=== PATIENT | male | born 1940 | race Caucasian/White ===

== ENCOUNTER 2016-10-08 15:36 | Emergency (ER) | payer MEDICARE, OTHER ==
[~2016-10-08] VITALS: Ht 180.3 cm; Wt 77.0 kg
[~2016-10-08 15:36] MED LIST: ADVA250A INH; ALBUAER3 INH; BACL20TA PO; CARD180C5 PO; FOLI400T PO; HYDR25TA5 PO; IPRAAER INH; LORA-392 PO; OXYGENTANK NAS.CANULA; PRED10 PO; ROSU10 PO; VITA100021 SL; VITA100064 PO; WARF-23 PO
[2016-10-08 15:39] VITALS: BP 112/82; PULSE 109; RESP 20; TEMP 97.5; O2SAT 96
--- NOTE | 2016-10-08 15:55 | PD ---
HPI Chief Complaint: General Weakness Time Seen by Provider: 15:50 Travel History International Travel<30 days: No Contact w/Intl Traveler<30days: No Traveled to known affect area: No History of Present Illness HPI Patient presents via [facility] for general weakness and fatigue onset one day. Reports 2 falls today without head trauma. History of severe peripheral vascular disease with 50% blockage in his lower extremities. Patient is considering intervention with vascular. Reports abrasion to his right elbow. Long-term girlfriend proximal to 2 months ago and patient does live alone now. He does have a son in town and another son from [facility] who will be coming down to stay with him long-term. Unable to recall tetanus. States he was ambulating without assistance yesterday. Patient does have a cane and walker at home which he has not been using. History of atrial fibrillation on Coumadin and COPD using oxygen regularly. He is on Cardizem for rate control. PFSH Past Medical History Hx Anticoagulant Therapy: Yes Arthritis: No Asthma: No Autoimmune Disease: No Anxiety: No Depression: No Heart Rhythm Problems: Yes (afib) Cancer: No Cardiovascular Problems: Yes High Cholesterol: Yes Chest Pain: No Congestive Heart Failure: No COPD: Yes Cerebrovascular Accident: Yes (2013) Diabetes: No Diminished Hearing: No Endocrine: No Gastrointestinal Disorders: Yes GERD: No Genitourinary: No Headaches: No Hepatitis: No Hiatal Hernia: No Heparin Induced Thrombocytopen: No Hypertension: Yes Immune Disorder: No Implanted Vascular Access Dvce: No Kidney Stones: No Musculoskeletal: No Neurologic: No Psychiatric: No Reproductive: No Respiratory: Yes (asbestosis) Migraines: No Myocardial Infarction: No Radiation Therapy: No Renal Failure: No Seizures: No Sickle Cell Disease: No Sleep Apnea: No Thyroid Disease: No Ulcer: No Past Surgical History Abdominal Surgery: Yes AICD: No Appendectomy: Yes Body Medical Devices: PT. POOR HISTORIAN, DOES NOT REMEMBER WANT MEDS HE IS TAKING. Cardiac Surgery: No Cholecystectomy: No Ear Surgery: No Endocrine Surgery: No Eye Surgery: No Genitourinary Surgery: No Gynecologic Surgery: No (n/a) Insulin Pump: No Joint Replacement: No Neurologic Surgery: No Oral Surgery: No Pacemaker: No Thoracic Surgery: No Tonsillectomy: Yes Other Surgery: Yes Social History Alcohol Use: Yes (3 DRINKS PER DAY) Tobacco Use: Yes (1 PPD X 30 YEARS) Substance Use: No Allergies-Medications (Allergen,Severity, Reaction): Coded Allergies: No Known Allergies (Verified , 10/08/16) Reported Meds & Prescriptions Reported Meds & Active Scripts Active Cipro (Ciprofloxacin HCl) 500 Mg Tab 500 Mg PO BID Proair Hfa 8.5 GM Inh (Albuterol Sulfate) 90 Mcg/Act Aer 1 Puff INH Q2HR PRN 108 mcg/actuation Combivent Respimat Inh (Ipratropium-Albuterol Inh) 20-100 [place]/Act Aero 1 Puff INH QID Advair Diskus Inh (Fluticasone-Salmeterol Inh) 250-50 Mcg/Blist Aer 1 Puff INH BID Rinse mouth after use. Ativan (Lorazepam) 0.5 Mg Tab 1 Tab PO Q8HR Please follow up with primary care doctor within 7 days to advise on further tapering of this medication.. Hydrochlorothiazide 25 Mg Tab 25 Mg PO DAILY Cardizem CD 24 HR (Diltiazem CD 24 HR) 180 Mg Caper 360 Mg PO DAILY Oxygen tank (Oxygen) 1 Ea Tank 2 Liter [employer] CONTINUOUS Oxygen Concentrator Portable Gaseous 2 L/min via Nasal Cannula Continuous For 99 months Reported Warfarin 2.5 Mg Tab 2.5 Mg PO TU,THURS Warfarin 5 Mg Tab 5 Mg PO EXCEPT TU THUR Baclofen 20 Mg Tab 20 Mg PO TID Crestor (Rosuvastatin Calcium) 10 Mg Tab 10 Mg PO DAILY Folic Acid 400 Mcg Tab 400 Mcg PO DAILY Vitamin B-12 (Cyanocobalamin) 1,000 Mcg Subl 1,000 Mcg SL DAILY Vitamin D (Cholecalciferol) 1,000 Unit Tab 1,000 Units PO DAILY Physical Exam Narrative GENERAL: Well-nourished, well-developed patient. SKIN: Warm and dry. small skin tear right lateral elbow 2x2 cm HEAD: Normocephalic. EYES: No scleral icterus. No injection or drainage. NECK: Supple, trachea midline. No JVD or lymphadenopathy. CARDIOVASCULAR: Irregular rate and rhythm without murmurs, gallops, or rubs. RESPIRATORY: Breath sounds decreased. No accessory muscle use. GASTROINTESTINAL: Abdomen soft, non-tender, nondistended. MUSCULOSKELETAL: No cyanosis, or edema. BACK: Nontender without obvious deformity. No CVA tenderness. Data Data Last Documented VS Vital Signs Date Time Temp Pulse Resp B/P Pulse Ox O2 Delivery O2 Flow Rate FiO2 10/08/16 16:54 88 20 111/64 96 Nasal Cannula 2 10/08/16 15:39 97.5 Orders Tetanus/Diphtheria Tox Adult (Tetanus/Di (10/08/16 16:00) Wound Care (10/08/16 15:50) Complete Blood Count With Diff (10/08/16 15:50) Basic Metabolic Panel (Bmp) (10/08/16 15:50) Urinalysis - C+S If Indicated (10/08/16 15:50) Diltiazem Inj (Cardizem Inj) (10/08/16 16:45) Urine Culture (10/08/16 16:30) Electrocardiogram (10/08/16 15:41) Labs Laboratory Tests Test 10/08/16 10/08/16 16:10 16:30 White Blood Count 9.1 TH/MM3 Red Blood Count 4.62 MIL/MM3 Hemoglobin 15.1 GM/DL Hematocrit 45.2 % Mean Corpuscular Volume 97.8 FL Mean Corpuscular Hemoglobin 32.6 PG Mean Corpuscular Hemoglobin 33.3 % Concent Red Cell Distribution Width 14.3 % Platelet Count 168 TH/MM3 Mean Platelet Volume 8.4 FL Neutrophils (%) (Auto) 79.3 % Lymphocytes (%) (Auto) 11.0 % Monocytes (%) (Auto) 6.6 % Eosinophils (%) (Auto) 0.4 % Basophils (%) (Auto) 2.7 % Neutrophils # (Auto) 7.3 TH/MM3 Lymphocytes # (Auto) 1.0 TH/MM3 Monocytes # (Auto) 0.6 TH/MM3 Eosinophils # (Auto) 0.0 TH/MM3 Basophils # (Auto) 0.2 TH/MM3 CBC Comment AUTO DIFF Differential Comment AUTO DIFF CONFIRMED Sodium Level 127 MEQ/L Potassium Level 5.0 MEQ/L Chloride Level 89 MEQ/L Carbon Dioxide Level 24.2 MEQ/L Anion Gap 14 MEQ/L Blood Urea Nitrogen 16 MG/DL Creatinine 1.40 MG/DL Estimat Glomerular Filtration 50 ML/MIN Rate Random Glucose 83 MG/DL Calcium Level 8.8 MG/DL Urine Collection Type CLEAN CATCH Urine Color YELLOW Urine Turbidity MOD Urine pH 6.0 Urine Specific [place] 1.007 Urine Protein NEG mg/dL Urine Glucose (UA) NEG mg/dL Urine Ketones NEG mg/dL Urine Occult Blood SMALL Urine Nitrite NEG Urine Bilirubin NEG Urine Leukocyte Esterase LARGE Urine RBC 10-14 /hpf Urine WBC 100-200 /hpf Urine WBC Clumps MOD Urine Squamous Epithelial 0-5 /hpf Cells Urine Amorphous Sediment FEW Urine Bacteria MOD /hpf Microscopic Urinalysis Comment CULTURE INDICATED Urine Collection Time 1630 MDM Medical Decision Making Medical Screen Exam Complete: Yes Emergency Medical Condition: Yes Differential Diagnosis Fall risk, general weakness, peripheral vascular disease, uncontrolled atrial fibrillation Narrative Course Assessment and plan discussed with patient at bedside. Initial EKG reveals atrial fibrillation with a left bundle branch block rate of 111. Physician Communication Physician Communication Case discussed and care transferred to Dr. Cochran Scripts Ciprofloxacin (Cipro)500 Mg [id number] Mg PO BID #10 TAB Ref 0 Prov:Juan Cochran MD 10/08/16 Alfredo Colunga MD Oct 08, 2016 15:55
[2016-10-08] MEDS ORDERED: WARF-18 PO (15:57)
[2016-10-08] MEDS ORDERED: TETANUS/DIPHTHERIA TOXOID ADULT 0.5 ML VIAL IM ONE (16:00)
[2016-10-08 16:29] LABS: WHITE BLOOD COUNT 9.1 TH/MM3 (4.0-11.0)
[2016-10-08 16:30] LABS: AUTOMATED NEUTROPHIL # 7.3 TH/MM3 (1.8-7.7); BASOPHIL # 0.2 TH/MM3 (0-0.2); BASOPHIL % 2.7 % (0.0-2.0); EOSINOPHIL % 0.4 % (0.0-4.0); HEMATOCRIT 45.2 % (39.0-51.0); HEMO FLAGS AUTO DIFF; MEAN CELL VOLUME 97.8 FL (80.0-100.0); MEAN CORPUSCULAR HEMOGLOBIN 32.6 PG (27.0-34.0); MEAN CORPUSCULAR HGB CONC 33.3 % (32.0-36.0); MONO % 6.6 % (0.0-8.0); NEUT % 79.3 % (16.0-70.0); PLATELET COUNT 168 TH/MM3 (150-450); RED BLOOD COUNT 4.62 MIL/MM3 (4.50-5.90); RED CELL DISTRIBUTION WIDTH 14.3 % (11.6-17.2)
[2016-10-08 16:32] LABS: BICARBONATE 24.2 MEQ/L (21.0-32.0)
[2016-10-08] MEDS ORDERED: DILTIAZEM HCL 25 MG/5 ML VIAL IV ONE (16:45)
[2016-10-08 16:46] LABS: SCAN/DIFF AUTO DIFF CONFIRMED
[2016-10-08 16:54] VITALS: BP 111/64; PULSE 88; RESP 20; O2SAT 96
[2016-10-08 16:54] LABS: BLOOD, URINE SMALL (NEG); GLUCOSE,URINE NEG (NEG); KETONE, URINE NEG (NEG); NITRITE,URINE NEG (NEG)
[2016-10-08 16:55] LABS: METHOD OF COLLECTION CLEAN CATCH; URINE COLOR YELLOW (YELLW/STRAW)
[2016-10-08 17:09] LABS: BACTERIA, URINE MOD /hpf; COMMENT (UR) CULTURE INDICATED; CULTURE IF INDICATED CULTURE INDICATED; SQUAMOUS EPITHELIAL CELL URINE 0-5 /hpf (0-5); WBC, URINE 100-200 /hpf (0-5)
[2016-10-08] MEDS ORDERED: CIPR-9 PO (17:38)
--- NOTE | 2016-10-08 17:43 | PD ---
Data Data Last Documented VS Vital Signs Date Time Temp Pulse Resp B/P Pulse Ox O2 Delivery O2 Flow Rate FiO2 10/08/16 16:54 88 20 111/64 96 Nasal Cannula 2 10/08/16 15:39 97.5 Orders Tetanus/Diphtheria Tox Adult (Tetanus/Di (10/08/16 16:00) Wound Care (10/08/16 15:50) Complete Blood Count With Diff (10/08/16 15:50) Basic Metabolic Panel (Bmp) (10/08/16 15:50) Urinalysis - C+S If Indicated (10/08/16 15:50) Prothrombin Time / Inr (Pt) (10/08/16 16:41) Diltiazem Inj (Cardizem Inj) (10/08/16 16:45) Urine Culture (10/08/16 16:30) Labs Laboratory Tests Test 10/08/16 10/08/16 16:10 16:30 White Blood Count 9.1 TH/MM3 Red Blood Count 4.62 MIL/MM3 Hemoglobin 15.1 GM/DL Hematocrit 45.2 % Mean Corpuscular Volume 97.8 FL Mean Corpuscular Hemoglobin 32.6 PG Mean Corpuscular Hemoglobin 33.3 % Concent Red Cell Distribution Width 14.3 % Platelet Count 168 TH/MM3 Mean Platelet Volume 8.4 FL Neutrophils (%) (Auto) 79.3 % Lymphocytes (%) (Auto) 11.0 % Monocytes (%) (Auto) 6.6 % Eosinophils (%) (Auto) 0.4 % Basophils (%) (Auto) 2.7 % Neutrophils # (Auto) 7.3 TH/MM3 Lymphocytes # (Auto) 1.0 TH/MM3 Monocytes # (Auto) 0.6 TH/MM3 Eosinophils # (Auto) 0.0 TH/MM3 Basophils # (Auto) 0.2 TH/MM3 CBC Comment AUTO DIFF Differential Comment AUTO DIFF CONFIRMED Sodium Level 127 MEQ/L Potassium Level 5.0 MEQ/L Chloride Level 89 MEQ/L Carbon Dioxide Level 24.2 MEQ/L Anion Gap 14 MEQ/L Blood Urea Nitrogen 16 MG/DL Creatinine 1.40 MG/DL Estimat Glomerular Filtration 50 ML/MIN Rate Random Glucose 83 MG/DL Calcium Level 8.8 MG/DL Urine Collection Type CLEAN CATCH Urine Color YELLOW Urine Turbidity MOD Urine pH 6.0 Urine Specific [place] 1.007 Urine Protein NEG mg/dL Urine Glucose (UA) NEG mg/dL Urine Ketones NEG mg/dL Urine Occult Blood SMALL Urine Nitrite NEG Urine Bilirubin NEG Urine Leukocyte Esterase LARGE Urine RBC 10-14 /hpf Urine WBC 100-200 /hpf Urine WBC Clumps MOD Urine Squamous Epithelial 0-5 /hpf Cells Urine Amorphous Sediment FEW Urine Bacteria MOD /hpf Microscopic Urinalysis Comment CULTURE INDICATED Urine Collection Time 1630 MDM Supervised Visit with [facility]: No Narrative Course This case is checked out to me by Dr. Colunga at 4 PM. He complained of some generalized weakness and had a fall when he stumbled. He has chronic A. fib and his heart rate was running between 110 and 1:30 I gave him 10 mg IV Cardizem for rate control Is now running in the s CBC is normal Metabolic profile notable for hyponatremia of 127 and a creatinine of 1.4, slightly higher than previous 1.1 I'm recommending he hold his diuretic for a couple of days and contact his physician on Monday He seems a little bit over diuresed Urinalysis shows UTI and Cipro is prescribed Dr. Colunga did not find any reason to hospitalize him and the patient wants to go home. He has a walker at home and I recommended he use that continually to limit his fall risk. He also is a Coumadin use her and I discussed the risk of falling is higher with that medication. Diagnosis Primary Impression: Generalized weakness Additional Impressions: Acute cystitis Qualified Code: N30.00 - Acute cystitis without hematuria Hyponatremia Additional Instruction: The patient was advised to follow up with their physician and return if they worsen. Use walker Hold diuretic for 3 days Take antibiotics for UTI Med/Other Pt SpecificInfo: Prescription(s) given Scripts Ciprofloxacin (Cipro)500 Mg [id number] Mg PO BID #10 TAB Ref 0 Prov:Juan Cochran MD 10/08/16 Disposition: 01 DISCHARGE HOME Condition: Stable Juan Cochran MD Oct 08, 2016 17:43
--- NOTE | 2016-10-09 14:51 | EKG ---
Date Performed: 10/08/2016 Time Performed: 15:41:42 PTAGE: 75 years EKG: Atrial fibrillation with rapid ventricular response with PVC(s). Left bundle branch block U nderlying rhythm is atrial fibrillation. When compared to previous tracing, no significant change. Ab normal ECG PREVIOUS TRACING : 08/09/2016 13.43 DOCTOR: Margarette Guadalupe Interpretating Date/Time 10/09/2016 14:50:26
== END 2016-10-08 17:53 | disposition home or self-care (01) ==
LOC: PHED 15:36
DX: R53.1 Weakness (principal); N30.00 Acute cystitis without hematuria; E87.1 Hypo-osmolality and hyponatremia; I48.91 Unspecified atrial fibrillation; E78.00 Pure hypercholesterolemia, unspecified; I10 Essential (primary) hypertension; J44.9 Chronic obstructive pulmonary disease, unspecified; I44.7 Left bundle-branch block, unspecified; I49.3 Ventricular premature depolarization; I73.9 Peripheral vascular disease, unspecified; Z79.01 Long term (current) use of anticoagulants; Z99.81 Dependence on supplemental oxygen; F17.210 Nicotine dependence, cigarettes, uncomplicated
CPT/HCPCS: 80048; 81001; 85025; 87086; 90471; 90714; 93005; 96374

== ENCOUNTER 2017-08-06 10:31 | Emergency (ER) | payer OTHER ==
[~2017-08-06] VITALS: Ht 180.3 cm; Wt 73.0 kg
[2017-08-06 10:31] VITALS: BP 134/71; PULSE 100; RESP 20; TEMP 98.1; O2SAT 90
[~2017-08-06 10:31] MED LIST changes: +CIPR-9 PO; -PRED10 PO; +WARF-18 PO
[2017-08-06] MEDS ORDERED: FURO20TA PO (11:08)
[2017-08-06] MEDS ORDERED: SYMB80AE INH (11:08)
[2017-08-06] MEDS ORDERED: METO50TA PO (11:08)
[2017-08-06] MEDS ORDERED: PRAV40TA2 PO (11:08)
[2017-08-06] MEDS ORDERED: GUAI600T11 PO (11:08)
[2017-08-06] MEDS ORDERED: MAGN400T2 PO (11:08)
[2017-08-06] MEDS ORDERED: LOSA25TA PO (11:08)
[2017-08-06] MEDS ORDERED: FINA5TAB2 PO (11:08)
[2017-08-06] MEDS ORDERED: SPIRCAP INH (11:08)
[2017-08-06] MEDS ORDERED: BUSP15TA PO (11:08)
[2017-08-06] MEDS ORDERED: SPIR25TA PO (11:08)
[2017-08-06] MEDS ORDERED: ALFU10TA2 PO (11:08)
--- NOTE | 2017-08-06 11:13 | PD ---
HPI Chief Complaint: General Weakness Time Seen by Provider: 11:12 Travel History International Travel<30 days: No Contact w/Intl Traveler<30days: No Traveled to known affect area: No History of Present Illness HPI 76-year-old male came to the emergency room with history of weakness, shakiness , right upper extremity worse than the left upper extremity and bilateral lower extremity. Patient actually went to the urgent care this morning because of these complains and they transferred him in ambulance to the ER. Patient has these symptoms going on for past 2-3 days he says. However he does have slowly progressive weakness has been going on for months. He has history of COPD and atrial fibrillation. He used to smoke about 2 packs a day which he says he has cut down for past 1 month to half a pack a day and he has a nicotine patch. No history of syncopal episode or falls. Patient requires home oxygen as needed and for past 1 week he's been using it every day. He was in A. fib on the monitor but rest of the vital signs were within acceptable limits. Patient is awake and able to answer questions appropriately. No history of fever or chills. No history of fall. He is on Coumadin for his A. fib. He says that he was seen at the [facility] in [place] less than 1 week ago where his INR he was told was 2.5 and he had a nuclear stress test done which he was told that he had passed. [facility] Past Medical History Narrative Medical List of his past medical, surgical, social and family history is reviewed from the nursing note. Hx Anticoagulant Therapy: Yes Arthritis: No Asthma: No Atrial Fibrillation: Yes Autoimmune Disease: No Anxiety: Yes Depression: No Heart Rhythm Problems: Yes (afib) Cancer: No Cardiovascular Problems: Yes High Cholesterol: Yes Chest Pain: No Congestive Heart Failure: No COPD: Yes Cerebrovascular Accident: Yes Diabetes: No Diminished Hearing: Yes Endocrine: No Gastrointestinal Disorders: Yes GERD: No Genitourinary: No Headaches: No Hepatitis: No Hiatal Hernia: No Heparin Induced Thrombocytopen: No Hypertension: Yes Immune Disorder: No Implanted Vascular Access Dvce: No Kidney Stones: No Musculoskeletal: No Neurologic: No Psychiatric: No Reproductive: No Respiratory: Yes Immunizations Current: Yes Migraines: No Myocardial Infarction: No Radiation Therapy: No Renal Failure: No Seizures: No Sickle Cell Disease: No Sleep Apnea: No Thyroid Disease: No Ulcer: No Influenza Vaccination: No Past Surgical History Abdominal Surgery: Yes AICD: No Appendectomy: Yes Body Medical Devices: PT. MARKOS HISTORIAN, DOES NOT REMEMBER WANT MEDS HE IS TAKING. Cardiac Surgery: No Cholecystectomy: No Ear Surgery: No Endocrine Surgery: No Eye Surgery: No Genitourinary Surgery: No Insulin Pump: No Joint Replacement: No Neurologic Surgery: No Oral Surgery: No Pacemaker: No Thoracic Surgery: No Tonsillectomy: Yes Other Surgery: Yes Social History Alcohol Use: Yes (3-4DRINKS PER DAY) Tobacco Use: Yes (NICODERM PATCHES) Substance Use: No Allergies-Medications (Allergen,Severity, Reaction): Coded Allergies: gabapentin (Verified Allergy, Unknown, UNKNOWN, 08/06/17) lisinopril (Verified Adverse Reaction, Intermediate, GI UPSET, 08/06/17) Comments List of his allergies reviewed from the nursing note. Reported Meds & Prescriptions Reported Meds & Active Scripts Active Proair Hfa 8.5 GM Inh (Albuterol Sulfate) 90 Mcg/Act Aer 1 Puff INH Q2HR PRN 108 mcg/actuation Oxygen tank (Oxygen) 1 Ea Tank 2 Liter [email or web address] CONTINUOUS Oxygen Concentrator Portable Gaseous 2 L/min via Nasal Cannula Continuous For 99 months Reported Spiriva Handihaler (Tiotropium Inh) 18 Mcg Cap 18 Mcg INH DAILY 1 capsule = 18 mcg Spironolactone 25 Mg Tab 50 Mg PO DAILY Pravastatin 40 Mg Tab 40 Mg PO DAILY Metoprolol Tartrate 50 Mg Tab 50 Mg PO BID Magnesium Oxide 400 Mg Tab 400 Mg PO BID Losartan (Losartan Potassium) 25 Mg Tab 25 Mg PO DAILY Mucus Relief ER (Guaifenesin) 600 Mg Tab 400 Mg PO BID PRN Furosemide 20 Mg Tab 20 Mg PO BID Finasteride 5 Mg Tab 5 Mg PO DAILY Do not crush. Buspirone (Buspirone HCl) 15 Mg Tab 15 Mg PO TID Symbicort Inh (Budesonide/Formoterol Fumarate) 80-4.5 Mcg/Act Aero 2 Puff INH Q12HR Alfuzosin ER 24 HR 10 Mg Tab 10 Mg PO DAILY Warfarin 2.5 Mg Tab 2.5 Mg PO - Warfarin 5 Mg Tab 5 Mg PO MON,,,MON Baclofen 20 Mg Tab 20 Mg PO TID Folic Acid 400 Mcg Tab 400 Mcg PO DAILY Vitamin D3 (Cholecalciferol) 1,000 Unit Tab 1,000 Units PO DAILY Narrative Medication List of his home medications reviewed from the nursing note. Review of Systems Except as stated in HPI: all other systems reviewed are Neg Neurologic: Positive: Weakness Physical Exam Narrative GENERAL: Awake, elderly, frail, moderate distress SKIN: Focused skin assessment warm/dry. HEAD: Atraumatic. Normocephalic. EYES: Pupils equal and round. No scleral icterus. No injection or drainage. ENT: No nasal bleeding or discharge. Mucous membranes pink and moist. NECK: Trachea midline. No JVD. CARDIOVASCULAR: Regular rate and rhythm. No murmur appreciated. RESPIRATORY: No accessory muscle use. Clear to auscultation. Breath sounds equal bilaterally. GASTROINTESTINAL: Abdomen soft, non-tender, nondistended. Hepatic and splenic margins not palpable. MUSCULOSKELETAL: No obvious deformities. No clubbing. No cyanosis. No edema. NEUROLOGICAL: Awake and alert. No obvious cranial nerve deficits. Motor grossly within normal limits. Normal speech. Resting tremors of all 4 extremities PSYCHIATRIC: Appropriate mood and affect; insight and judgment normal. Data Data Last Documented VS Vital Signs Date Time Temp Pulse Resp B/P (MAP) Pulse Ox O2 Delivery O2 Flow Rate FiO2 08/06/17 12:21 96 Nasal Cannula 2.00 08/06/17 11:45 96 18 08/06/17 10:31 98.1 Orders Orders Electrocardiogram (08/06/17 11:57) Prothrombin Time / Inr (Pt) (08/06/17 11:57) Complete Blood Count With Diff (08/06/17 11:57) Basic Metabolic Panel (Bmp) (08/06/17 11:57) Troponin I (08/06/17 11:57) Urinalysis - C+S If Indicated (08/06/17 11:57) Ct Brain W/O Iv Contrast(Rout) (08/06/17 11:57) Chest, Single Ap (08/06/17 11:57) Ecg Monitoring (08/06/17 11:57) Iv Access Insert/Monitor (08/06/17 11:57) Oximetry (08/06/17 11:57) Sodium Chloride 0.9% Flush (Ns Flush) (08/06/17 12:00) Labs Laboratory Tests Test 08/06/17 12:04 White Blood Count 5.9 TH/MM3 Red Blood Count 3.44 MIL/MM3 Hemoglobin 12.1 GM/DL Hematocrit 35.9 % Mean Corpuscular Volume 104.2 FL Mean Corpuscular Hemoglobin 35.3 PG Mean Corpuscular Hemoglobin Concent 33.8 % Red Cell Distribution Width 13.6 % Platelet Count 114 TH/MM3 Mean Platelet Volume 7.8 FL Neutrophils (%) (Auto) 76.8 % Lymphocytes (%) (Auto) 12.4 % Monocytes (%) (Auto) 9.9 % Eosinophils (%) (Auto) 0.2 % Basophils (%) (Auto) 0.7 % Neutrophils # (Auto) 4.6 TH/MM3 Lymphocytes # (Auto) 0.7 TH/MM3 Monocytes # (Auto) 0.6 TH/MM3 Eosinophils # (Auto) 0.0 TH/MM3 Basophils # (Auto) 0.0 TH/MM3 CBC Comment DIFF FINAL Differential Comment Prothrombin Time 23.4 SEC Prothromb Time International Ratio 2.1 RATIO Blood Urea Nitrogen 15 MG/DL Creatinine 1.00 MG/DL Random Glucose 126 MG/DL Calcium Level 8.6 MG/DL Sodium Level 134 MEQ/L Potassium Level 4.0 MEQ/L Chloride Level 97 MEQ/L Carbon Dioxide Level 28.8 MEQ/L Anion Gap 8 MEQ/L Estimat Glomerular Filtration Rate 73 ML/MIN Troponin I LESS THAN 0.02 NG/ML MDM Medical Decision Making Medical Screen Exam Complete: Yes Emergency Medical Condition: Yes Medical Record Reviewed: Yes Interpretation(s) Twelve-lead EKG was reviewed by me. Atrial fibrillation, normal axis, old anterior DC. Heart rate of 98 bpm. Differential Diagnosis CVA, Parkinson's, generalized weakness, electrolyte abnormality Narrative Course 1 PM blood test results of back and within acceptable limits. CT scan of the head is negative for any CVA. X-ray of the chest shows old scarring and COPD. At this point I'm thinking of discharging the patient and setting up a home health care for him. Procedures EKG Prior to Arrival: No Diagnosis Primary Impression: Generalized weakness Additional Impression: Essential tremor Referrals: Primary Care Physician 2 days Additional Instructions: Please return to the ER if the condition worsens or any other new concerns. Otherwise follow-up with your primary care. You will have home health care coming and evaluating you. Med/Other Pt SpecificInfo: No Meds Exist/No RX given Disposition: 01 DISCHARGE HOME Condition: Stable Emilia Asher MD Aug 06, 2017 11:13
[2017-08-06 11:33] VITALS: BP 140/78; PULSE 105; RESP 18; O2SAT 97
[2017-08-06 11:45] VITALS: BP 128/72; PULSE 96; RESP 18; O2SAT 96
[2017-08-06] MEDS ORDERED: SODIUM CHLORIDE 0.9% FLUSH 10 ML FLUSH IVF PRN (12:00)
[2017-08-06 12:10] LABS: AUTOMATED NEUTROPHIL # 4.6 TH/MM3 (1.8-7.7); BASOPHIL % 0.7 % (0.0-2.0); EOSINOPHIL % 0.2 % (0.0-4.0); HEMATOCRIT 35.9 % (39.0-51.0); HEMO FLAGS DIFF FINAL; LYMPH % 12.4 % (9.0-44.0); LYMPHOCYTE # 0.7 TH/MM3 (1.0-4.8); MEAN CELL VOLUME 104.2 FL (80.0-100.0); MEAN CORPUSCULAR HEMOGLOBIN 35.3 PG (27.0-34.0); MEAN CORPUSCULAR HGB CONC 33.8 % (32.0-36.0); MONO % 9.9 % (0.0-8.0); NEUT % 76.8 % (16.0-70.0); PLATELET COUNT 114 TH/MM3 (150-450); RED BLOOD COUNT 3.44 MIL/MM3 (4.50-5.90); RED CELL DISTRIBUTION WIDTH 13.6 % (11.6-17.2); WHITE BLOOD COUNT 5.9 TH/MM3 (4.0-11.0)
[2017-08-06 12:18] LABS: CHLORIDE 97 MEQ/L (98-107); SODIUM (NA) 134 MEQ/L (136-145)
--- NOTE | 2017-08-06 12:20 | RADRPT ---
EXAM DATE/TIME: 08/06/2017 12:07 [facility] COMPARISON: No previous studies available for comparison. INDICATIONS : Generalized weakness. RADIATION DOSE: 57.80 CTDIvol (mGy) MEDICAL HISTORY : Cerebrovascular disease. Hypertension. Chronic obstructive pulmonary disease. SURGICAL HISTORY : Tonsillectomy. ENCOUNTER: Initial ACUITY: 1 week PAIN SCALE: 0/10 LOCATION: cranial TECHNIQUE: Multiple contiguous axial images were obtained of the head. Using automated exposure control and adj ustment of the mA and/or kV according to patient size, radiation dose was kept as low as reasonably a chievable to obtain optimal diagnostic quality images. DICOM format image data is available electro nically for review and comparison. FINDINGS: CEREBRUM: The ventricles are normal for age. No evidence of midline shift, mass lesion, hemorrhage or acute in farction. No extra-axial fluid collections are seen. POSTERIOR FOSSA: The cerebellum and brainstem are intact. The 4th ventricle is midline. The cerebellopontine angle i s unremarkable. EXTRACRANIAL: The visualized portion of the orbits is intact. SKULL: The calvaria is intact. No evidence of skull fracture. CONCLUSION: No acute intracranial disease. Hugo Worthy MD on August 06, 2017 at 12:16 Board Certified Radiologist. This report was verified electronically.
[2017-08-06 12:21] VITALS: O2SAT 96
[2017-08-06 12:21] LABS: INTERNATIONAL NORMALIZED RATIO 2.1 RATIO; PROTHROMBIN TIME - PATIENT 23.4 SEC (9.8-11.6)
[2017-08-06 12:22] LABS: ANION GAP 8 MEQ/L (5-15); BICARBONATE 28.8 MEQ/L (21.0-32.0); BLOOD UREA NITROGEN 15 MG/DL (7-18)
[2017-08-06 12:25] LABS: GLOMERULAR FILTRATION RATE 73 ML/MIN (>89)
--- NOTE | 2017-08-06 12:44 | RADRPT ---
EXAM DATE/TIME: 08/06/2017 12:19 [facility] COMPARISON: CHEST SINGLE AP, August 09, 2016, 13:17. INDICATIONS : Generalized weakness, CVA MEDICAL HISTORY : Chronic obstructive pulmonary disease. Hypertension Cerebrovascular disease. SURGICAL HISTORY : Tonsillectomy. ENCOUNTER: Subsequent ACUITY: 1 week PAIN SCORE: 0/10 LOCATION: Bilateral chest FINDINGS: A single view of the chest demonstrates moderate right pleural effusion and right basilar density. Mi nimal density left lung base. Calcified pleural plaques. Osseous structures are intact. CONCLUSION: 1. Right basilar pleural-parenchymal density, stable. 2. Calcified pleural plaques which can be seen with asbestosis exposure. Hugo Worthy MD on August 06, 2017 at 12:32 Board Certified Radiologist. This report was verified electronically.
--- NOTE | 2017-08-06 13:07 | HHI.FF ---
Face to Face Verification Diagnosis: (1) Generalized weakness (2) Essential tremor Physical Therapy Order: Evaluate and Treat, Improve ambulation, Strength and gait training Occupational Therapy Order: Evaluate and Treat, Improve ADL, Gross motor coordination, Fine motor coordination Home Health Nursing Order: CHF education Head Esthetician Order: To Evaluate: Support services I have seen patient Virgilio Cepsedes on 08/06/17. My clinical findings support the need for the requested home health care services because: Generalized weakness and tremors that's giving him hard time ambulating and lifting objects. Ltd mobility - disease progression Patient has SOB Deconditioned w/ increased weakness I certify that my clinical findings support that this patient is homebound because: Unsteady gait/balance Generalized weakness and tremors that's giving him hard time ambulating and lifting objects. Emilia Asher MD Aug 06, 2017 13:07
[2017-08-06 13:30] VITALS: BP 146/80; PULSE 100; RESP 18; O2SAT 96
--- NOTE | 2017-08-07 18:33 | EKG ---
Date Performed: 08/06/2017 Time Performed: 12:05:23 PTAGE: 76 years EKG: ATRIAL FIBRILLATION SEPTAL MYOCARDIAL INFARCTION ABNORMAL ECG Compared to PREVIOUS TRACING , heart rate has slowed somewhat. PREVIOUS TRACIN10/08/2016 15.41 DOCTOR: Margarette Guadalupe Interpretating Date/Time 08/07/2017 18:32:12
== END 2017-08-06 13:49 | disposition home or self-care (01) ==
LOC: PHED 10:31
DX: R53.1 Weakness (principal); G25.0 Essential tremor; I48.91 Unspecified atrial fibrillation; J44.9 Chronic obstructive pulmonary disease, unspecified; Z79.01 Long term (current) use of anticoagulants; I10 Essential (primary) hypertension; Z72.0 Tobacco use
CPT/HCPCS: 70450; 71010; 80048; 84484; 85025; 85610; 93005; 99285

== ENCOUNTER 2017-09-26 11:53 | Inpatient (IN) | payer OTHER, MEDICARE ==
[2017-09-26] VITALS (9 sets, daily range): BP systolic 127–160; BP diastolic 63–94; PULSE 92–112; RESP 18–24; TEMP 98.2; O2SAT 94–97
[~2017-09-26 11:53] MED LIST changes: -ADVA250A INH; +ALFU10TA2 PO; +BUSP15TA PO; -CARD180C5 PO; -CIPR-9 PO; +FINA5TAB2 PO; +FURO20TA PO; +GUAI600T11 PO; -HYDR25TA5 PO; -IPRAAER INH; -LORA-392 PO; +LOSA25TA PO; +MAGN400T2 PO; +METO50TA PO; +PRAV40TA2 PO; -ROSU10 PO; +SPIR25TA PO; +SPIRCAP INH; +SYMB80AE INH; -VITA100021 SL
[2017-09-26] MEDS ORDERED: BACL10TA PO (12:16)
[2017-09-26] MEDS ORDERED: NITR1SUB2 SL (12:16)
[2017-09-26] MEDS ORDERED: FLUT1SPR14 (12:16)
[2017-09-26] MEDS ORDERED: TRAZ50TA12 PO (12:16)
[2017-09-26] MEDS ORDERED: RESP: ALBUTEROL 2.5 MG/IPRATROPIUM 0.5 MG NEB (SCH) INH ONE (12:30)
--- NOTE | 2017-09-26 12:36 | PD ---
HPI Chief Complaint: Respiratory Symptoms Time Seen by Provider: 12:00 Travel History International Travel<30 days: No Contact w/Intl Traveler<30days: No Traveled to known affect area: No History of Present Illness HPI 76-year-old male with a history of congestive heart failure, COPD and atrial fibrillation presents [facility] for [facility] of breath and urinary symptoms. States that for the last week he has had a and increased difficulty with breathing and has had a productive cough with yellow phlegm. Patient denies fevers or chills. Denies nausea, vomiting or diarrhea. States he does have orthopnea but this is an chronic the last year. In addition, the patient is complaining of dark, cloudy, and malodorous urine for the last week. Patient denies abdominal pain or dysuria. Denies hematuria. 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 States that he is followed up with them within the last 3 months. States he is noncompliant with his medications. Says he "occasionally" uses oxygen at home but only at night. PFSH Past Medical History Hx Anticoagulant Therapy: Yes Arthritis: No Asthma: No Atrial Fibrillation: Yes Autoimmune Disease: No Anxiety: Yes Depression: No Heart Rhythm Problems: Yes (afib) Cancer: No Cardiovascular Problems: Yes High Cholesterol: Yes Chest Pain: No Congestive Heart Failure: No COPD: Yes Cerebrovascular Accident: Yes Diabetes: No Diminished Hearing: Yes Endocrine: No Gastrointestinal Disorders: Yes GERD: No Genitourinary: No Headaches: No Hepatitis: No Hiatal Hernia: No Heparin Induced Thrombocytopen: No Hypertension: Yes Immune Disorder: No Implanted Vascular Access Dvce: No Kidney Stones: No Musculoskeletal: No Neurologic: No Psychiatric: No Reproductive: No Respiratory: Yes Immunizations Current: Yes Migraines: No Myocardial Infarction: No Radiation Therapy: No Renal Failure: No Seizures: No Sickle Cell Disease: No Sleep Apnea: No Thyroid Disease: No Ulcer: No Influenza Vaccination: No ?: Not Past Surgical History Abdominal Surgery: Yes AICD: No Appendectomy: Yes Body Medical Devices: PT. POOR HISTORIAN, DOES NOT REMEMBER WANT MEDS HE IS TAKING. Cardiac Surgery: No Cholecystectomy: No Ear Surgery: No Endocrine Surgery: No Eye Surgery: No Genitourinary Surgery: No Insulin Pump: No Joint Replacement: No Neurologic Surgery: No Oral Surgery: No Pacemaker: No Thoracic Surgery: No Tonsillectomy: Yes Other Surgery: Yes Social History Alcohol Use: Yes (3-4DRINKS PER DAY) Tobacco Use: Yes (NICODERM PATCHES) Substance Use: No Allergies-Medications (Allergen,Severity, Reaction): Coded Allergies: gabapentin (Verified Allergy, Unknown, UNKNOWN, 09/26/17) lisinopril (Verified Adverse Reaction, Intermediate, GI UPSET, 09/26/17) Reported Meds & Prescriptions Reported Meds & Active Scripts Active Proair Hfa 8.5 GM Inh (Albuterol Sulfate) 90 Mcg/Act Aer 1 Puff INH Q2HR PRN 108 mcg/actuation Oxygen tank (Oxygen) 1 Ea Tank 2 Liter KEYSHAWN.CANULA CONTINUOUS Oxygen Concentrator Portable Gaseous 2 L/min via Nasal Cannula Continuous For 99 months Reported Nitroglycerin SL (Nitroglycerin) 0.3 Mg Subl 0.3 Mg SL DIRECTED PRN ONE TABLET UNDER THE TONGUE NEEDED FOR CHEST PAIN, MAY REPEAT EVERY FIVE MINUTES FOR A TOTAL OF 3 DOSES OR CALL 911 IF NO RELIEF Trazodone (Trazodone HCl) 50 Mg Tab 50 Mg PO HS Kls Aller-Bebo (Fluticasone Propionate (Nasal)) 50 Mcg/Actuation Spr Baclofen 10 Mg Tab 10 Mg PO TID Spiriva Handihaler (Tiotropium Inh) 18 Mcg Cap 18 Mcg INH DAILY 1 capsule = 18 mcg Spironolactone 25 Mg Tab 50 Mg PO DAILY Pravastatin 40 Mg Tab 40 Mg PO DAILY Metoprolol Tartrate 50 Mg Tab 50 Mg PO BID Magnesium Oxide 400 Mg Tab 400 Mg PO BID Losartan (Losartan Potassium) 25 Mg Tab 25 Mg PO DAILY Mucus Relief ER (Guaifenesin) 600 Mg Tab 400 Mg PO BID PRN Furosemide 20 Mg Tab 20 Mg PO BID Finasteride 5 Mg Tab 5 Mg PO DAILY Do not crush. Buspirone (Buspirone HCl) 15 Mg Tab 15 Mg PO TID Symbicort Inh (Budesonide/Formoterol Fumarate) 80-4.5 Mcg/Act Aero 2 Puff INH Q12HR Alfuzosin ER 24 HR 10 Mg Tab 10 Mg PO DAILY Warfarin 2.5 Mg Tab 2.5 Mg PO -- Warfarin 5 Mg Tab 5 Mg PO MON,,,MON Folic Acid 400 Mcg Tab 400 Mcg PO DAILY Vitamin D3 (Cholecalciferol) 1,000 Unit Tab 1,000 Units PO DAILY Review of Systems Except as stated in HPI: all other systems reviewed are Neg Physical Exam Narrative GENERAL: Well-nourished and distress SKIN: Focused skin assessment warm/dry. HEAD: Atraumatic. Normocephalic. EYES: Pupils equal and round. No scleral icterus. No injection or drainage. ENT: No nasal bleeding or discharge. Mucous membranes pink and moist. NECK: Trachea midline. No JVD. CARDIOVASCULAR: Regular rate and rhythm. No murmur appreciated. RESPIRATORY: No accessory muscle use. Wheezes, rales, and rhonchi upper lobes GASTROINTESTINAL: Abdomen soft, non-tender, nondistended. Hepatic and splenic margins not palpable. MUSCULOSKELETAL: No obvious deformities. No clubbing. No cyanosis. No edema. NEUROLOGICAL: Awake and alert. No obvious cranial nerve deficits. Motor grossly within normal limits. Normal speech. PSYCHIATRIC: Appropriate mood and affect; insight and judgment normal. Data Data Last Documented VS Vital Signs Date Time Temp Pulse Resp B/P (MAP) Pulse Ox O2 Delivery O2 Flow Rate FiO2 09/26/17 12:44 98.2 112 22 139/76 (97) 95 Nasal Cannula 3.50 Orders Orders Complete Blood Count With Diff (09/26/17 12:18) Comprehensive Metabolic Panel (09/26/17 12:18) B-Type Natriuretic Peptide (09/26/17 12:18) Act Partial Throm Time (Ptt) (09/26/17 12:18) Prothrombin Time / Inr (Pt) (09/26/17 12:18) Magnesium (Mg) (09/26/17 12:18) Ckmb (Isoenzyme) Profile (09/26/17 12:18) Troponin I (09/26/17 12:18) Urinalysis - C+S If Indicated (09/26/17 12:18) Influenzae A/B Antigen (09/26/17 12:18) Blood Culture (09/26/17 12:18) Electrocardiogram (09/26/17 12:18) Chest, Pa & Lat (09/26/17 12:18) Albuterol-Ipratropium Neb (Duoneb Neb) (09/26/17 12:30) Methylprednisolone So Succ Inj (Solumedr (09/26/17 12:45) Urine Culture (09/26/17 12:30) Ceftriaxone Inj (Rocephin Inj) (09/26/17 13:30) Azithromycin (Zithromax) (09/26/17 13:30) Furosemide Inj (Lasix Inj) (09/26/17 13:45) Admit Order (Ed Use Only) (09/26/17 13:51) Labs Laboratory Tests Test 09/26/17 12:15 09/26/17 12:30 White Blood Count 4.7 TH/MM3 Red Blood Count 3.66 MIL/MM3 Hemoglobin 12.7 GM/DL Hematocrit 37.7 % Mean Corpuscular Volume 103.0 FL Mean Corpuscular Hemoglobin 34.7 PG Mean Corpuscular Hemoglobin Concent 33.7 % Red Cell Distribution Width 14.4 % Platelet Count 137 TH/MM3 Mean Platelet Volume 8.9 FL Neutrophils (%) (Auto) 63.6 % Lymphocytes (%) (Auto) 20.7 % Monocytes (%) (Auto) 13.5 % Eosinophils (%) (Auto) 1.3 % Basophils (%) (Auto) 0.9 % Neutrophils # (Auto) 3.0 TH/MM3 Lymphocytes # (Auto) 1.0 TH/MM3 Monocytes # (Auto) 0.6 TH/MM3 Eosinophils # (Auto) 0.1 TH/MM3 Basophils # (Auto) 0.0 TH/MM3 CBC Comment DIFF FINAL Differential Comment Prothrombin Time 26.6 SEC Prothromb Time International Ratio 2.6 RATIO Activated Partial Thromboplast Time 37.8 SEC Blood Urea Nitrogen 14 MG/DL Creatinine 1.19 MG/DL Random Glucose 94 MG/DL Total Protein 7.6 GM/DL Albumin 3.1 GM/DL Calcium Level 9.2 MG/DL Magnesium Level 1.9 MG/DL Alkaline Phosphatase 88 U/L Aspartate Amino Transf (AST/SGOT) 18 U/L Alanine Aminotransferase (ALT/SGPT) 15 U/L Total Bilirubin 1.1 MG/DL Sodium Level 136 MEQ/L Potassium Level 3.9 MEQ/L Chloride Level 97 MEQ/L Carbon Dioxide Level 32.2 MEQ/L Anion Gap 7 MEQ/L Estimat Glomerular Filtration Rate 60 ML/MIN Total Creatine Kinase 44 U/L Troponin I 0.02 NG/ML B-Type Natriuretic Peptide 1665 PG/ML Ethyl Alcohol Level LESS THAN 3 MG/DL Urine Color YELLOW Urine Turbidity CLOUDY Urine pH 6.5 Urine Specific [place] 1.010 Urine Protein 100 mg/dL Urine Glucose (UA) NEG mg/dL Urine Ketones NEG mg/dL Urine Occult Blood MOD Urine Nitrite NEG Urine Bilirubin NEG Urine Urobilinogen LESS THAN 2.0 MG/DL Urine Leukocyte Esterase LARGE Urine RBC 20 /hpf Urine WBC /hpf Urine WBC Clumps MANY Microscopic Urinalysis Comment CULTURE INDICATED MDM Medical Decision Making Medical Screen Exam Complete: Yes Emergency Medical Condition: Yes Differential Diagnosis Pneumonia, congestive heart failure, COPD exacerbation, congestive heart failure , STEMI, NSTEMI Narrative Course 76-year-old male with a history of congestive heart failure, COPD and atrial fibrillation presents [facility] the ED [facility] for [facility]ness of breath and urinary symptoms. States that for the last week he has had a and increased difficulty with breathing and has had a productive cough with yellow phlegm. Patient denies fevers or chills. Denies nausea, vomiting or diarrhea. States he does have orthopnea but this is an chronic the last year. In addition, the patient is complaining of dark, cloudy, and malodorous urine for the last week. Patient denies abdominal pain or dysuria. Denies hematuria. 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 States that he is followed up with them within the last 3 months. States he is noncompliant with his medications. Says he "occasionally" uses oxygen at home but only at night. Vital signs demonstrates heart rate 93 to 130. Afebrile. 89% O2 saturation on room air, 92% with 2 L a minute nasal cannula. EKG demonstrates atrial fibrillation with rate controlled. Physical exam demonstrates wheezes, rales, rhonchi in the upper lobes with diminished breath sounds bilateral lower lobes. Patient will be administered Solu-Medrol 125 mg as this is also likely a COPD exacerbation. DuoNeb 1 administered. Administered cautiously as his heart rate was persistent at 120 bpm. After further discussion patient states that he has not taken any his medications today. States that he takes Coumadin and a couple of other medications in the morning along with another dose at night. He is unable to to tell me what these medications are. Laboratory Tests Test 09/26/17 12:15 09/26/17 12:30 White Blood Count 4.7 TH/MM3 Red Blood Count 3.66 MIL/MM3 Hemoglobin 12.7 GM/DL Hematocrit 37.7 % Mean Corpuscular Volume 103.0 FL Mean Corpuscular Hemoglobin 34.7 PG Mean Corpuscular Hemoglobin Concent 33.7 % Red Cell Distribution Width 14.4 % Platelet Count 137 TH/MM3 Mean Platelet Volume 8.9 FL Neutrophils (%) (Auto) 63.6 % Lymphocytes (%) (Auto) 20.7 % Monocytes (%) (Auto) 13.5 % Eosinophils (%) (Auto) 1.3 % Basophils (%) (Auto) 0.9 % Neutrophils # (Auto) 3.0 TH/MM3 Lymphocytes # (Auto) 1.0 TH/MM3 Monocytes # (Auto) 0.6 TH/MM3 Eosinophils # (Auto) 0.1 TH/MM3 Basophils # (Auto) 0.0 TH/MM3 CBC Comment DIFF FINAL Differential Comment Prothrombin Time 26.6 SEC Prothromb Time International Ratio 2.6 RATIO Activated Partial Thromboplast Time 37.8 SEC Blood Urea Nitrogen 14 MG/DL Creatinine 1.19 MG/DL Random Glucose 94 MG/DL Total Protein 7.6 GM/DL Albumin 3.1 GM/DL Calcium Level 9.2 MG/DL Magnesium Level 1.9 MG/DL Alkaline Phosphatase 88 U/L Aspartate Amino Transf (AST/SGOT) 18 U/L Alanine Aminotransferase (ALT/SGPT) 15 U/L Total Bilirubin 1.1 MG/DL Sodium Level 136 MEQ/L Potassium Level 3.9 MEQ/L Chloride Level 97 MEQ/L Carbon Dioxide Level 32.2 MEQ/L Anion Gap 7 MEQ/L Estimat Glomerular Filtration Rate 60 ML/MIN Total Creatine Kinase 44 U/L Troponin I 0.02 NG/ML B-Type Natriuretic Peptide 1665 PG/ML Ethyl Alcohol Level LESS THAN 3 MG/DL Urine Color YELLOW Urine Turbidity CLOUDY Urine pH 6.5 Urine Specific [place] 1.010 Urine Protein 100 mg/dL Urine Glucose (UA) NEG mg/dL Urine Ketones NEG mg/dL Urine Occult Blood MOD Urine Nitrite NEG Urine Bilirubin NEG Urine Urobilinogen LESS THAN 2.0 MG/DL Urine Leukocyte Esterase LARGE Urine RBC 20 /hpf Urine WBC /hpf Urine WBC Clumps MANY Microscopic Urinalysis Comment CULTURE INDICATED BNP over 1600. Lasix 40mg administered. Patient remained stable in the emergency Department on 2 L oxygen nasal cannula with saturations of 92-94%. Patient will be admitted with pneumonia, hypoxia, CHF exacerbation and urinary tract infection. Diagnosis Primary Impression: Pneumonia Qualified Codes: J18.9 - Pneumonia, unspecified organism Additional Impressions: UTI (urinary tract infection) Qualified Codes: N30.00 - Acute cystitis without hematuria Hypoxia Admitting Information Admitting Physician Requests: Observation Condition: Stable Stefany Finnegan Sep 26, 2017 12:36
[2017-09-26] MEDS ORDERED: methylPREDNISolone SOD SUCC 125 MG/2 ML VIAL IV PUSH ONE (12:45)
[2017-09-26 12:52] LABS: BASOPHIL % 0.9 % (0.0-2.0); EOSINOPHIL # 0.1 TH/MM3 (0-0.4); EOSINOPHIL % 1.3 % (0.0-4.0); HEMATOCRIT 37.7 % (39.0-51.0); HEMOGLOBIN 12.7 GM/DL (13.0-17.0); LYMPH % 20.7 % (9.0-44.0); MEAN CORPUSCULAR HEMOGLOBIN 34.7 PG (27.0-34.0); MEAN CORPUSCULAR HGB CONC 33.7 % (32.0-36.0); MEAN PLATELET VOLUME 8.9 FL (7.0-11.0); MONO % 13.5 % (0.0-8.0); MONOCYTE # 0.6 TH/MM3 (0-0.9); NEUT % 63.6 % (16.0-70.0); PLATELET COUNT 137 TH/MM3 (150-450); RED BLOOD COUNT 3.66 MIL/MM3 (4.50-5.90); RED CELL DISTRIBUTION WIDTH 14.4 % (11.6-17.2); WHITE BLOOD COUNT 4.7 TH/MM3 (4.0-11.0)
[2017-09-26 13:00] LABS: INTERNATIONAL NORMALIZED RATIO 2.6 RATIO; PROTHROMBIN TIME - PATIENT 26.6 SEC (9.8-11.6)
[2017-09-26 13:01] LABS: BILIRUBIN, URINE NEG (NEG); BLOOD, URINE MOD (NEG); GLUCOSE,URINE NEG (NEG); KETONE, URINE NEG (NEG); NITRITE,URINE NEG (NEG); PH, URINE 6.5 (5.0-8.5); URINE COLOR YELLOW (YELLW/STRAW); URINE LEUKOCYTE ESTERASE LARGE (NEG); WHITE BLOOD CELL CLUMPS MANY
[2017-09-26 13:08] LABS: ALBUMIN 3.1 GM/DL (3.4-5.0); AST (GOT) 18 U/L (15-37); BICARBONATE 32.2 MEQ/L (21.0-32.0); BLOOD UREA NITROGEN 14 MG/DL (7-18); CALCIUM 9.2 MG/DL (8.5-10.1); CHLORIDE 97 MEQ/L (98-107); CREATININE 1.19 MG/DL (0.60-1.30); GLOMERULAR FILTRATION RATE 60 ML/MIN (>89); GLUCOSE,RANDOM 94 MG/DL (74-106); MAGNESIUM 1.9 MG/DL (1.5-2.5); SODIUM (NA) 136 MEQ/L (136-145)
[2017-09-26 13:10] LABS: ALT (GPT) 15 U/L (12-78)
[2017-09-26 13:14] LABS: ALKALINE PHOSPHATASE 88 U/L (45-117); TOTAL BILIRUBIN ADULT 1.1 MG/DL (0.2-1.0); TOTAL PROTEIN 7.6 GM/DL (6.4-8.2); TROPONIN I 0.02 NG/ML (0.02-0.05)
[2017-09-26] MEDS ORDERED: AZITHROMYCIN 250 MG TAB PO ONE (13:30)
[2017-09-26] MEDS ORDERED: cefTRIAXone INJ 1,000 MG in SODIUM CHLORIDE 0.9% INJ 100 ML IV ONE (13:30)
[2017-09-26] MEDS ORDERED: FUROSEMIDE 40 MG/4 ML VIAL IV PUSH ONE (13:45)
--- NOTE | 2017-09-26 14:03 | PD ---
Physical Exam Date Seen by Provider: Sep 26, 2017 Time Seen by Provider: 12:30 Narrative I, Dr. Carmona, have reviewed the advance practice practitioner's documentation and am in agreement, met with the patient face to face, made the diagnosis, and the medical decision making was done by me. *My assessment and Findings: Patient seen and evaluated with PA, please see PA note for further details. Patient has been having worsening dyspnea on exertion , wheezing, not improved with treatment at home with his own nebulizers. On evaluation in the ER, he is in significant respiratory distress with wheezing throughout both lungs and decreased breath sounds at the bases. Laboratory Tests Test 09/26/17 12:15 09/26/17 12:30 Red Blood Count 3.66 MIL/MM3 (4.50-5.90) Hemoglobin 12.7 GM/DL (13.0-17.0) Hematocrit 37.7 % (39.0-51.0) Mean Corpuscular Volume 103.0 FL (80.0-100.0) Mean Corpuscular Hemoglobin 34.7 PG (27.0-34.0) Platelet Count 137 TH/MM3 (150-450) Monocytes (%) (Auto) 13.5 % (0.0-8.0) Prothrombin Time 26.6 SEC (9.8-11.6) Activated Partial Thromboplast Time 37.8 SEC (24.3-30.1) Albumin 3.1 GM/DL (3.4-5.0) Total Bilirubin 1.1 MG/DL (0.2-1.0) Chloride Level 97 MEQ/L (98-107) Carbon Dioxide Level 32.2 MEQ/L (21.0-32.0) Estimat Glomerular Filtration Rate 60 ML/MIN (>89) B-Type Natriuretic Peptide 1665 PG/ML (0-100) Urine Turbidity CLOUDY (CLEAR) Urine Protein 100 mg/dL (NEG-TRACE) Urine Occult Blood MOD (NEG) Urine Leukocyte Esterase LARGE (NEG) Urine RBC 20 /hpf (0-3) Urine WBC Clumps MANY (NONE) He was initially treated with Solu-Medrol and nebulizers with some improvement symptoms. Chest x-ray and lab work with elevation of BNP would indicate underlying CHF as well. Diuretics were initiated and plan would be to admit the patient for further treatment. Case was discussed with family practice resident service for admission. In addition, patient also has a UTI and IV and spouse were initiated after cultures were drawn. Data Data Last Documented VS Vital Signs Date Time Temp Pulse Resp B/P (MAP) Pulse Ox O2 Delivery O2 Flow Rate FiO2 09/26/17 12:44 98.2 112 22 139/76 (97) 95 Nasal Cannula 3.50 Orders Orders Complete Blood Count With Diff (09/26/17 12:18) Comprehensive Metabolic Panel (09/26/17 12:18) B-Type Natriuretic Peptide (09/26/17 12:18) Act Partial Throm Time (Ptt) (09/26/17 12:18) Prothrombin Time / Inr (Pt) (09/26/17 12:18) Magnesium (Mg) (09/26/17 12:18) Ckmb (Isoenzyme) Profile (09/26/17 12:18) Troponin I (09/26/17 12:18) Urinalysis - C+S If Indicated (09/26/17 12:18) Influenzae A/B Antigen (09/26/17 12:18) Blood Culture (09/26/17 12:18) Electrocardiogram (09/26/17 12:18) Chest, Pa & Lat (09/26/17 12:18) Albuterol-Ipratropium Neb (Duoneb Neb) (09/26/17 12:30) Methylprednisolone So Succ Inj (Solumedr (09/26/17 12:45) Urine Culture (09/26/17 12:30) Ceftriaxone Inj (Rocephin Inj) (09/26/17 13:30) Azithromycin (Zithromax) (09/26/17 13:30) Furosemide Inj (Lasix Inj) (09/26/17 13:45) Admit Order (Ed Use Only) (09/26/17 13:51) Labs Laboratory Tests Test 09/26/17 12:15 09/26/17 12:30 White Blood Count 4.7 TH/MM3 Red Blood Count 3.66 MIL/MM3 Hemoglobin 12.7 GM/DL Hematocrit 37.7 % Mean Corpuscular Volume 103.0 FL Mean Corpuscular Hemoglobin 34.7 PG Mean Corpuscular Hemoglobin Concent 33.7 % Red Cell Distribution Width 14.4 % Platelet Count 137 TH/MM3 Mean Platelet Volume 8.9 FL Neutrophils (%) (Auto) 63.6 % Lymphocytes (%) (Auto) 20.7 % Monocytes (%) (Auto) 13.5 % Eosinophils (%) (Auto) 1.3 % Basophils (%) (Auto) 0.9 % Neutrophils # (Auto) 3.0 TH/MM3 Lymphocytes # (Auto) 1.0 TH/MM3 Monocytes # (Auto) 0.6 TH/MM3 Eosinophils # (Auto) 0.1 TH/MM3 Basophils # (Auto) 0.0 TH/MM3 CBC Comment DIFF FINAL Differential Comment Prothrombin Time 26.6 SEC Prothromb Time International Ratio 2.6 RATIO Activated Partial Thromboplast Time 37.8 SEC Blood Urea Nitrogen 14 MG/DL Creatinine 1.19 MG/DL Random Glucose 94 MG/DL Total Protein 7.6 GM/DL Albumin 3.1 GM/DL Calcium Level 9.2 MG/DL Magnesium Level 1.9 MG/DL Alkaline Phosphatase 88 U/L Aspartate Amino Transf (AST/SGOT) 18 U/L Alanine Aminotransferase (ALT/SGPT) 15 U/L Total Bilirubin 1.1 MG/DL Sodium Level 136 MEQ/L Potassium Level 3.9 MEQ/L Chloride Level 97 MEQ/L Carbon Dioxide Level 32.2 MEQ/L Anion Gap 7 MEQ/L Estimat Glomerular Filtration Rate 60 ML/MIN Total Creatine Kinase 44 U/L Troponin I 0.02 NG/ML B-Type Natriuretic Peptide 1665 PG/ML Urine Color YELLOW Urine Turbidity CLOUDY Urine pH 6.5 Urine Specific [place] 1.010 Urine Protein 100 mg/dL Urine Glucose (UA) NEG mg/dL Urine Ketones NEG mg/dL Urine Occult Blood MOD Urine Nitrite NEG Urine Bilirubin NEG Urine Urobilinogen LESS THAN 2.0 MG/DL Urine Leukocyte Esterase LARGE Urine RBC 20 /hpf Urine WBC /hpf Urine WBC Clumps MANY Microscopic Urinalysis Comment CULTURE INDICATED MDM Medical Record Reviewed: Yes Supervised Visit with [facility]HT[facility]: Yes Diagnosis Primary Impression: Pneumonia Qualified Codes: J18.9 - Pneumonia, unspecified organism Additional Impressions: Hypoxia UTI (urinary tract infection) Qualified Codes: N30.00 - Acute cystitis without hematuria CHF (congestive heart failure) Admitting Information Admitting Physician Requests: Admit Condition: Stable Allyssa Carmona MD Sep 26, 2017 14:03
--- NOTE | 2017-09-26 14:34 | RADRPT ---
EXAM DATE/TIME: 09/26/2017 13:22 [facility] COMPARISON: No previous studies available for comparison. INDICATIONS : [facility] breath[facility] MEDICAL HISTORY : Chronic obstructive pulmonary disease. Hypertension Cerebrovascular disease. SURGICAL HISTORY : Tonsillectomy. ENCOUNTER: Initial ACUITY: 1 day PAIN SCORE: 1/10 LOCATION: Bilateral chest FINDINGS: There is bilateral mostly basilar airspace disease with loculated pleural fluid, right greater than l eft. Findings similar to August 2017. Extensive pleural calcifications. CONCLUSION: 1. Bilateral effusions, right greater than left with extensive pleural calcifications. 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 Isiah Raymundo MD on September 26, 2017 at 14:29 Board Certified Radiologist. This report was verified electronically.
--- NOTE | 2017-09-26 15:33 | HHI.HP ---
[facility] Service Family Medicine Primary Care Physician [facility] Admission Diagnosis PNA, UTI, hypoxia Diagnoses: International Travel<30 Days: No Contact w/Intl Traveler<30days: No Known Affected Area: No History of Present Illness Pt is a 76-year-old male with past medical history significant for COPD, CHF, asbestosis, history of a stroke presenting due to worsening shortness of breath. Patient reports that over the past week he has been feeling progressively more short of breath. Normally he is able to walk about 50-75 feet without feeling short of breath. He now is feeling short of breath after walking a distance of about 5 steps. At baseline he has a cough productive of clear sputum. Over the past week sputum has become thicker and more opaque in color. He normally will use oxygen, 2L nc, at home but only at night. He has a portable oxygen tank he carries with him and also a larger oxygen unit at home. His urine has been darker in color and has had a foul odor. He denies any abdominal pain or dysuria. He endorses frequency and urgency. PCP is Dr. Ornelas at the [facility] in [place]. He also has a Health Outcomes Liaison, professor of music, vascular specialist he follows up with but he does not recall their names. He will drink about 3-4 cocktails per night. He has quit drinking in the past. He denies history of alcohol withdrawals. Review of Systems Constitutional: COMPLAINS OF: Weight gain, DENIES: Fever, Chills Eyes: COMPLAINS OF: Blurred vision Ears, nose, mouth, throat: DENIES: Hearing loss, Throat pain Respiratory: COMPLAINS OF: Cough, Sputum production, Shortness of breath Cardiovascular: DENIES: Palpitations, Syncope Gastrointestinal: DENIES: Abdominal pain, Black stools, Bloody stools, Constipation, Diarrhea, Nausea, Vomiting, Anorexia Genitourinary: COMPLAINS OF: Urinary frequency, Urinary incontinence, Urgency, Nocturia, DENIES: Hematuria, Dysuria, Penile Discharge, Testicular Pain, Testicular Swelling Musculoskeletal: DENIES: Joint pain, Muscle aches, Joint Swelling Integumentary: DENIES: Rash Immunologic/allergic: DENIES: Eczema Neurologic: DENIES: Headache Psychiatric: COMPLAINS OF: Anxiety, Hallucinations (visual) Past Family Social History Past Medical History Atrial fibrillation Hypertension Dyslipidemia Chronic obstructive pulmonary disease Chronic smoker, does not inhale will light up up to 2-3 cigarettes per day Daily alcohol use, 3-4 drinks a day, vodka and sprite History CVA, March 2014. No residual neuro deficits History cerebral aneurysm Peripheral vascular disease Anxiety Carotid stenosis, checked every 6 months No history of SC per pt but he reports having a stent Past Surgical History ?cardiac stent placement Left fractured hip repair Appendectomy Exploratory abdominal surgery with adhesions History of PEG tube placement and removal Abdominal artery blockage repair Reported Medications Reported Meds & Active Scripts Active Proair Hfa 8.5 GM Inh (Albuterol Sulfate) 90 Mcg/Act Aer 1 Puff INH Q2HR PRN 108 mcg/actuation Oxygen tank (Oxygen) 1 Ea Tank [address] CONTINUOUS Oxygen Concentrator Portable Gaseous 2 L/min via Nasal Cannula Continuous For 99 months Reported Nitroglycerin SL (Nitroglycerin) 0.3 Mg Subl 0.3 Mg SL DIRECTED PRN ONE TABLET UNDER THE TONGUE NEEDED FOR CHEST PAIN, MAY REPEAT EVERY FIVE MINUTES FOR A TOTAL OF 3 DOSES OR CALL 911 IF NO RELIEF Trazodone (Trazodone HCl) 50 Mg Tab 50 Mg PO HS Kls Aller-Bebo (Fluticasone Propionate (Nasal)) 50 Mcg/Actuation Spr Baclofen 10 Mg Tab 10 Mg PO TID Spiriva Handihaler (Tiotropium Inh) 18 Mcg Cap 18 Mcg INH DAILY 1 capsule = 18 mcg Spironolactone 25 Mg Tab 50 Mg PO DAILY Pravastatin 40 Mg Tab 40 Mg PO DAILY Metoprolol Tartrate 50 Mg Tab 50 Mg PO BID Magnesium Oxide 400 Mg Tab 400 Mg PO BID Losartan (Losartan Potassium) 25 Mg Tab 25 Mg PO DAILY Mucus Relief ER (Guaifenesin) 600 Mg Tab 400 Mg PO BID PRN Furosemide 20 Mg Tab 20 Mg PO BID Finasteride 5 Mg Tab 5 Mg PO DAILY Do not crush. Buspirone (Buspirone HCl) 15 Mg Tab 15 Mg PO TID Symbicort Inh (Budesonide/Formoterol Fumarate) 80-4.5 Mcg/Act Aero 2 Puff INH Q12HR Alfuzosin ER 24 HR 10 Mg Tab 10 Mg PO DAILY Warfarin 2.5 Mg Tab 2.5 Mg PO -- Warfarin 5 Mg Tab 5 Mg PO MON,,,MON Folic Acid 400 Mcg Tab 400 Mcg PO DAILY Vitamin D3 (Cholecalciferol) 1,000 Unit Tab 1,000 Units PO DAILY Magnesium Allergies: Coded Allergies: gabapentin (Verified Allergy, Unknown, UNKNOWN, 09/26/17) lisinopril (Verified Adverse Reaction, Intermediate, GI UPSET, 09/26/17) Active Ordered Medications Inpatient Medications Acetaminophen (Tylenol) 650 mg Q4H PRN PO Temp > 100.4; Start 09/26/17 at 16:45 ; Status UNV Albuterol Sulfate (Albuterol Neb) 2.5 mg Q2HR NEB PRN INH SHORTNESS OF BREATH; Start 09/26/17 at 16:45; Status UNV Albuterol Sulfate (Proair Hfa Inh) 1 puff Q2HR PRN INH SHORTNESS OF BREATH; Start 09/26/17 at 16:45; Status UNV Albuterol/ Ipratropium (Duoneb Neb) 1 ampule Q4HR NEB INH ; Start 09/26/17 at 20:00; Status UNV Azithromycin (Zithromax) 250 mg DAILY PO ; Start 09/27/17 at 09:00; Status UNV Baclofen (Lioresal) 10 mg Q8HR PRN PO BACK PAIN; Start 09/26/17 at 16:45; Status UNV Budesonide/ Formoterol Fumarate (Symbicort 80-4.5 Mcg Inh) 2 puff Q12HR INH ; Start 09/26/17 at 21:00; Status UNV Buspirone HCl (Buspar) 15 mg TID PO ; Start 09/26/17 at 18:00; Status UNV Calcium Carbonate (Tums Chew) 1,000 mg TID PRN CHEW DYSPEPSIA; Start 09/26/17 at 16:45; Status UNV Ceftriaxone Sodium 1000 mg/ Sodium Chloride 100 ml @ 200 mls/hr Q24H IV ; Start 09/26/17 at 16:45; Status UNV Cholecalciferol (Vitamin D3) 1,000 units DAILY PO ; Start 09/27/17 at 09:00; Status UNV Clonidine (Catapres) 0.1 mg Q6H PRN PO SBP> OR = 180, DBP> OR = 100; Start at 16:45; Status UNV Finasteride (Proscar) 5 mg DAILY PO ; Start 09/27/17 at 09:00; Status UNV Flumazenil (Romazicon Inj) 0.2 mg Q1M PRN IV PUSH SEE LABEL COMMENTS; Start at 17:00; Status UNV Folic Acid (Folate) 0.4 mg DAILY PO ; Start 09/27/17 at 09:00; Status UNV Furosemide (Lasix Inj) 40 mg DAILY IV PUSH ; Start 09/27/17 at 09:00; Status UNV Guaifenesin (Mucinex Er) 400 mg BID PRN PO CHEST CONGESTION AND/OR COUGH; Start 09/26/17 at 16:45; Status UNV Lorazepam (Ativan Inj) 2 mg Q15M PRN IV PUSH CIWA > 20; Start 09/26/17 at 17:00 ; Status UNV Lorazepam (Ativan) 2 mg Q2H PRN PO CIWA 11-14; Start 09/26/17 at 17:00; Status UNV Losartan Potassium (Cozaar) 25 mg DAILY PO ; Start 09/27/17 at 09:00; Status UNV Magnesium Hydroxide (Milk Of Magnesia Liq) 30 ml DAILY PRN PO for Severe Constipation; Start 09/26/17 at 16:45; Status UNV Magnesium Oxide (Mag-Ox) 400 mg BID PO ; Start 09/26/17 at 21:00; Status UNV Methylprednisolone Sodium Succinate (SoluMEDROL INJ) 125 mg ONCE ONCE IV PUSH Last administered on 09/26/17at 12:52; Start 09/26/17 at 12:45; Stop 09/26/17 at 12:46; Status DC Metoprolol Tartrate (Lopressor) 50 mg BID PO ; Start 09/26/17 at 21:00; Status UNV Multivitamins/ Minerals Therapeutic (Theragran M Tab) 1 tab DAILY PO ; Start at 09:00; Stop 10/02/17 at 08:59; Status UNV Non-Formulary Medication 10 mg DAILY PO ; Start 09/27/17 at 09:00; Status UNV Ondansetron HCl (Zofran Inj) 4 mg Q6H PRN IV PUSH NAUSEA; Start 09/26/17 at 16: 45; Status UNV Potassium Chloride (KCl) 20 meq BID PO ; Start 09/26/17 at 21:00; Status UNV Pravastatin Sodium (Pravachol) 40 mg DAILY PO ; Start 09/26/17 at 16:45; Status UNV Prednisone (Deltasone) 30 mg BID PO ; Start 09/26/17 at 21:00; Status UNV Senna/Docusate Sodium (Annmarie-Colace) 1 tab BID PRN PO CONSTIPATION; Start at 16:45; Status UNV Sodium Chloride (NS Flush) 2 ml UNSCH PRN IV FLUSH FLUSH AFTER USING IV ACCESS ; Start 09/26/17 at 16:45; Status UNV Spironolactone (Aldactone) 50 mg DAILY PO ; Start 09/26/17 at 16:45; Status UNV Thiamine HCl (Vitamin B1) 100 mg DAILY PO ; Start 09/27/17 at 09:00; Status UNV Tiotropium [place] (Spiriva Inh) 18 mcg DAILY INH ; Start 09/27/17 at 09:00; Status UNV Trazodone HCl (Desyrel) 50 mg HS PO ; Start 09/26/17 at 21:00; Status UNV Warfarin Sodium (Coumadin) 5 mg DAILY PO ; Start 09/27/17 at 09:00; Status UNV Family History Mother: of a stroke at 54, alcohol abuse Father: of a SC at 54, gastric ulcer Social History Lives with room mates in [place] Drinks 3-4 cocktails per night Denies current cigarette use, he reports that he will "light up" up to 3-4 cigarettes daily but will not inhale Per EMR review he smoked up to a pack per day since a teenager Occasionally will smoke marijuana Physical Exam Vital Signs Vital Signs Date Time Temp Pulse Resp B/P (MAP) Pulse Ox O2 Delivery O2 Flow Rate FiO2 09/26/17 15:14 106 21 152/88 (109) 95 Nasal Cannula 3.00 09/26/17 12:44 98.2 112 22 139/76 (97) 95 Nasal Cannula 3.50 09/26/17 12:32 96 Nasal Cannula 2.00 09/26/17 12:03 16 94 Nasal Cannula 2.00 09/26/17 11:58 98.2 98 18 151/94 (113) 94 Physical Exam GENERAL: This is a well-developed patient, in no apparent distress. SKIN: Ecchymoses present on upper extremities. Cool and dry. HEAD: Atraumatic. Normocephalic. EYES: Pupils equal round and reactive. Extraocular motions intact. No scleral icterus. No injection or drainage. ENT: Nose without bleeding, purulent drainage or septal hematoma. Throat without erythema, tonsillar hypertrophy or exudate. Uvula midline. Airway patent. Poor dentition. NECK: Trachea midline. No JVD or lymphadenopathy. Supple, nontender, no meningeal signs. +R carotid bruit CARDIOVASCULAR: Distant heart sounds. Irregular rate and rhythm. No significant murmurs appreciated. RESPIRATORY: Good air movement. Diffuse expriatory wheezing. Decreased breath sounds over tight lung base. No rales or rhonchi. GASTROINTESTINAL: Scar from exploratory laparotomy and prior peg tube. Abdomen soft, non-tender, mildly distended. No palpable masses. No guarding. MUSCULOSKELETAL: Extremities without clubbing, cyanosis, or edema. No joint tenderness, effusion, or edema noted. No calf tenderness. Negative Homans sign bilaterally. NEUROLOGICAL: Awake and alert. Cranial nerves II through XII intact. Normal speech. Laboratory Laboratory Tests Test 09/26/17 12:15 09/26/17 12:30 White Blood Count 4.7 Red Blood Count 3.66 Hemoglobin 12.7 Hematocrit 37.7 Mean Corpuscular Volume 103.0 Mean Corpuscular Hemoglobin 34.7 Mean Corpuscular Hemoglobin Concent 33.7 Red Cell Distribution Width 14.4 Platelet Count 137 Mean Platelet Volume 8.9 Neutrophils (%) (Auto) 63.6 Lymphocytes (%) (Auto) 20.7 Monocytes (%) (Auto) 13.5 Eosinophils (%) (Auto) 1.3 Basophils (%) (Auto) 0.9 Neutrophils # (Auto) 3.0 Lymphocytes # (Auto) 1.0 Monocytes # (Auto) 0.6 Eosinophils # (Auto) 0.1 Basophils # (Auto) 0.0 CBC Comment DIFF FINAL Differential Comment Prothrombin Time 26.6 Prothromb Time International Ratio 2.6 Activated Partial Thromboplast Time 37.8 Blood Urea Nitrogen 14 Creatinine 1.19 Random Glucose 94 Total Protein 7.6 Albumin 3.1 Calcium Level 9.2 Magnesium Level 1.9 Alkaline Phosphatase 88 Aspartate Amino Transf (AST/SGOT) 18 Alanine Aminotransferase (ALT/SGPT) 15 Total Bilirubin 1.1 Sodium Level 136 Potassium Level 3.9 Chloride Level 97 Carbon Dioxide Level 32.2 Anion Gap 7 Estimat Glomerular Filtration Rate 60 Total Creatine Kinase 44 Troponin I 0.02 B-Type Natriuretic Peptide 1665 Urine Color YELLOW Urine Turbidity CLOUDY Urine pH 6.5 Urine Specific [place] 1.010 Urine Protein 100 Urine Glucose (UA) NEG Urine Ketones NEG Urine Occult Blood MOD Urine Nitrite NEG Urine Bilirubin NEG Urine Urobilinogen LESS THAN 2.0 Urine Leukocyte Esterase LARGE Urine RBC 20 Urine WBC Urine WBC Clumps MANY Microscopic Urinalysis Comment CULTURE INDICATED Date/Time Source Procedure Growth Status 09/26/17 12:30 Blood Peripheral Aerobic Blood Culture Pending Received 09/26/17 12:30 Blood Peripheral Anaerobic Blood Culture Pending Received 09/26/17 12:30 Nasal Aspirate Influenza Types A,B Antigen (UMER) - Final NEGATIVE FOR FLU A AND B ANTIGEN.... Complete 09/26/17 12:30 Urine Clean Catch Urine Culture Pending Received Result Diagram: 09/26/17 1215 09/26/17 1215 Imaging Last 24 hours Impressions Chest X-Ray 09/26/17 1218 Signed Impressions: Service Date/Time: Tuesday, September 26, 2017 13:22 - CONCLUSION: 1. Bilateral effusions, right greater than left with extensive pleural calcifications. 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 Isiah Raymundo MD Caprini VTE Risk Assessment Caprini VTE Risk Assessment: Mod/High Risk (score >= 2) Caprini Risk Assessment Model Point Value = 1 Point Value = 2 Point Value = 3 Point Value = 5 Age 41-60 Minor surgery BMI > 25 kg/m2 Swollen legs Varicose veins or History of unexplained or recurrent spontaneous Oral contraceptives or hormone replacement Sepsis (< 1 month) Serious lung disease, including pneumonia (< 1 month) Abnormal pulmonary function Acute myocardial infarction Congestive heart failure (< 1 month) History of inflammatory bowel disease Medical patient at bed rest Age 61-74 Arthroscopic surgery Major open surgery (> 45 min) Laparoscopic surgery (> 45 min) Malignancy Confined to bed (> 72 hours) Immobilizing plaster cast Central venous access Age >= 75 History of VTE Family history of VTE Factor V Leiden Prothrombin [id number] Lupus anticoagulant Anticardiolipin antibodies Elevated serum homocysteine Heparin-induced thrombocytopenia Other congenital or acquired thrombophilia Stroke (< 1 month) Elective arthroplasty Hip, pelvis, or leg fracture Acute spinal cord injury (< 1 month) Prophylaxis Regimen Total Risk Factor Score Risk Level Prophylaxis Regimen 0-1 Low Early ambulation 2 Moderate Order ONE of the following: *Sequential Compression Device (SCD) *Heparin 5000 units SQ BID 3-4 Higher Order ONE of the following medications: *Heparin 5000 units SQ TID *Enoxaparin/Lovenox 40 mg SQ daily (WT < 150 kg, CrCl > 30 mL/min) *Enoxaparin/Lovenox 30 mg SQ daily (WT < 150 kg, CrCl > 10-29 mL/min) *Enoxaparin/Lovenox 30 mg SQ BID (WT < 150 kg, CrCl > 30 mL/min) AND/OR *Sequential Compression Device (SCD) 5 or more Highest Order ONE of the following medications: *Heparin 5000 units SQ TID (Preferred with Epidurals) *Enoxaparin/Lovenox 40 mg SQ daily (WT < 150 kg, CrCl > 30 mL/min) *Enoxaparin/Lovenox 30 mg SQ daily (WT < 150 kg, CrCl > 10-29 mL/min) *Enoxaparin/Lovenox 30 mg SQ BID (WT < 150 kg, CrCl > 30 mL/min) AND *Sequential Compression Device (SCD) Assessment and Plan Assessment and Plan Pt is a 76 year old male with history of COPD, CHF, prior stroke, or asbestosis presenting due to shortness of breath found to have an elevated BNP indicative of CHF exacerbation. UA concerning for UTI. Pt with increased oxygen requirement, diffuse wheezing worsening concerning for COPD exacerbation. Code Status FULL Discussed Condition With [facility] medicine team Problem List: (1) CHF exacerbation ICD Codes: I50.9 - Heart failure, unspecified Plan: Pt with history of CHF, presenting with acute exacerbation. Pt with worsening urinary frequency due to UTI, medication compliance questionable. It is unclear if patient has been taking his home diuretics as prescribed. BNP elevated to 1665. Pt denies chest pain troponin in ED within normal limits at 0.02. Echo from 2016 with EF of 45-50%. -Echo ordered, pt does not recall when he last had this done -Lasix 40mg IV daily, avoid late doses as patient already has nocturia and will wake up every hr to urinate. -Will supplement potassium -Continue home beta sharon as patient has mild decompensation without hypotension or evidence of hypoperfusion, see A. fib plan below -Pt has KINJAL-I allergy -Strict I's and O's -Fluid restriction to 1.5 L daily -Salt restriction of 2 g daily (2) COPD exacerbation ICD Codes: J44.1 - Obstructive chronic bronchitis with exacerbation Status: Acute Plan: Reported symptoms concerning for COPD exacerbation. Pt with history of asbestosis, CXR is difficult to interpret in terms of evaluating for an acute COPD exacerbation. -Rocephin 1000 mg IV daily -Azithromycin 500 mg 1, continue azithromycin 250 mg po [place] -Duo nebs every 4 hours -Albuterol as needed for shortness of breath -Continue use of home inhalers -Oxygen saturation to be between 88-92 percent (3) Atrial fibrillation ICD Codes: I48.91 - Atrial fibrillation Status: Acute Plan: Continue home medications. Patient on anticoagulation and medication for rate control. He has not been compliant with taking all of his prescribed medications. -EKG ordered -Coumadin 2.5 mg Monday, Monday, Monday -Coumadin 5 mg Monday, Monday, , Monday -Metoprolol Tartrate 50 mg BID (4) Alcohol dependence ICD Codes: F10.20 - Alcohol dependence Status: Acute Plan: Pt endorses drinking 3-4 cocktails per night. Denies history of alcohol withdrawl symptoms in the past, including seizures.Last drink was 2 days ago. -Ethanol level ordered -[facility] protocol -Rally pack -Seizure precautions -Neuro checks Q4hrs -Monitor for signs of withdrawal (5) History of asbestosis ICD Codes: Z87.09 - Personal history of other diseases of the respiratory system Plan: Chest X ray consistent with prior asbestos exposure Stable from chest x-ray done 08/06/17 (6) UTI (urinary tract infection) ICD Codes: N39.0 - Urinary tract infection, site not specified Status: Acute Plan: Patient reports foul odor of urine. Urine is dark in color. UA with cloudy turbidity, 100 protein, large leukocyte esterase, moderate blood, 20 RBCs , many white blood cell clumps. Culture indicated -UTI covered with Rocephin, see plain above (7) Abdominal distension ICD Codes: R14.0 - Abdominal distension (gaseous) Plan: Pt with history of alcohol abuse, liver enzymes within normal limits. Pt denies abdominal pain, no pain with palpation of abdomen. -Consider abdominal US if abdominal distention does not resolve with diuretics or if patient develops abdominal pain (8) FEN/PPX Plan: Fluids: Fluid restriction 1.5L daily Electrolytes: COntinue to monitor and replete as needed Nutrition: Sodium restriction GI PPX: Protonix DVT ppx: Pt on Coumadin, Aman Starr Physician Certification 2 Midnight Certification Type: Admission for Inpatient Services Order for Inpatient Services The services are ordered in accordance with Medicare regulations or non- Medicare payer requirements, as applicable. In the case of services not specified as inpatient-only, they are appropriately provided as inpatient services in accordance with the 2-midnight benchmark. Estimated LOS (days): 2 days is the estimated time the patient will need to remain in the hospital, assuming treatment plan goals are met and no additional complications. Post-Hospital Plan: Not yet determined Problem Qualifiers (1) UTI (urinary tract infection): Qualified Codes: N30.00 - Acute cystitis without hematuria Rhona Page MD R3 Sep 26, 2017 15:33
[2017-09-26] MEDS ORDERED: SODIUM CHLORIDE 0.9% FLUSH 10 ML FLUSH IV FLUSH PRN ×2 (15:45→16:45)
[2017-09-26] MEDS ORDERED: BACLOFEN 10 MG TAB PO PRN (16:45)
[2017-09-26] MEDS ORDERED: ACETAMINOPHEN 325 MG TAB PO PRN (16:45)
[2017-09-26] MEDS ORDERED: ALBUTEROL SULFATE 90 MCG/ACT HFA 8 GM INHALER INH PRN (16:45)
[2017-09-26] MEDS ORDERED: RESP: ALBUTEROL 2.5 MG/3 ML NEB (PRN) INH (16:45)
[2017-09-26] MEDS ORDERED: MAGNESIUM HYDROXIDE SUSP 30 ML CUP PO PRN (16:45)
[2017-09-26] MEDS ORDERED: guaiFENesin E.R. 600 MG TAB PO PRN (16:45)
[2017-09-26] MEDS ORDERED: CALCIUM CARBONATE 500 MG CHEWABLE TAB CHEW PRN (16:45)
[2017-09-26] MEDS ORDERED: cloNIDine HCL 0.1 MG TAB PO PRN (16:45)
[2017-09-26] MEDS ORDERED: DOCUSATE SODIUM 50 MG/SENNA 8.6 MG TAB PO PRN (16:45)
[2017-09-26] MEDS ORDERED: ONDANSETRON HCL 4 MG/2 ML VIAL IV PUSH PRN (16:45)
[2017-09-26] MEDS ORDERED: LORazepam 1 MG TAB PO PRN (17:00)
[2017-09-26] MEDS ORDERED: LORazepam 2 MG/ML VIAL IV PUSH PRN ×4 (17:00)
[2017-09-26] MEDS ORDERED: FLUMAZENIL 0.5 MG/5 ML VIAL IV PUSH PRN (17:00)
[2017-09-26] MEDS ORDERED: LORazepam 2 MG TAB PO PRN (17:00)
[2017-09-26] MEDS: PRAVASTATIN SOD 40 MG TAB PO SCH (18:01)
[2017-09-26] MEDS: SPIRONOLACTONE 50 MG TAB PO SCH (18:42)
[2017-09-26] MEDS: busPIRone HCL 5 MG TAB PO SCH (18:42)
[2017-09-26] MEDS: RESP: ALBUTEROL 2.5 MG/IPRATROPIUM 0.5 MG NEB (SCH) INH ×2 (19:08→23:10)
--- NOTE | 2017-09-26 20:40 | HHI.FPPN ---
Subjective Remarks Medicine attending note: Very pleasant 76-year-old gentleman being admitted through the emergency room short of breath. Patient has a complex past medical history which includes ASCVD with atrial fibrillation, chronic anticoagulation, COPD, recurrent urinary tract infections, history of possibly increased social alcohol usage, home oxygen, has noticed over the last 1-2 weeks feeling increasingly "tired". He describes it as feeling "worse and worse. He has had a thickening of his mucus in his lungs, a darkening of his urine and an odor that he suspected could be secondary to infection. He notified the [facility] this morning and was advised to come to the emergency room. Currently he is relatively comfortable although coughing intermittently. Please refer to resident history and physical for complete discussion of past medical history, family history, social history, review of systems. Objective Vitals Vital Signs Date Time Temp Pulse Resp B/P (MAP) Pulse Ox O2 Delivery O2 Flow Rate FiO2 09/26/17 19:31 105 24 127/63 (84) 96 Nasal Cannula 3.00 09/26/17 19:11 94 Nasal Cannula 3.00 09/26/17 18:43 104 21 160/80 (106) 96 Nasal Cannula 3.00 09/26/17 15:14 106 21 152/88 (109) 95 Nasal Cannula 3.00 09/26/17 12:44 98.2 112 22 139/76 (97) 95 Nasal Cannula 3.50 09/26/17 12:32 96 Nasal Cannula 2.00 09/26/17 12:03 16 94 Nasal Cannula 2.00 09/26/17 11:58 98.2 98 18 151/94 (113) 94 I/O 09/25/17 09/25/17 09/25/17 09/26/17 09/26/17 09/26/17 07:00 15:00 23:00 07:00 15:00 23:00 Intake Total 100 ml 480 ml Output Total 650 ml Balance 100 ml -170 ml Intake Oral 480 ml IV Total 100 ml Output Urine Total 650 ml Result Diagram: 09/26/17 1215 09/26/17 1215 Objective Remarks Vital signs noted. Pulse approximately 100/m and irregularly irregular in rhythm. Gen. appearance: Older gentleman who is pleasant conversation, makes excellent eye contact, normal affect. EENT: Very dry oral mucosa, dentition decreased Neck: Prominent right bruit left no appreciable bruit Lungs: Hyperresonant to percussion, diminished breath sounds, mild expiratory wheezing in the mid lungs bilaterally. Cardiac: Irregularly irregular rhythm with increased rate, no definite S3 or murmurs. Abdomen: Slightly protuberant, prominent vertical midline surgical scar. No organomegaly, no pulsatile masses or tenderness. Extremities: Pulses are not definitely palpable below the groin, feet are minimally warm to touch, no skin jeopardy. A/P Assessment and Plan Clinical assessment Shortness of breath, multifactorial secondary to clinical diagnosis of COPD and probable diagnosis of CHF with bilateral pleural effusions, increased ventricular response to atrial fibrillation.. BNP 1665. Probable urinary tract infection with too numerous to count white blood cells and 20 red blood cells per high-powered field. Urine culture and empiric antibiotics have been ordered Abnormal CBC with MCV of 103 and diminished platelets 137,000 with a mild monocytosis relative, suspect may be the effects of increased social alcohol. Anticoagulation with a therapeutic INR of 2.6 Hyperlipidemia Peripheral vascular disease CXR c/w with asbestosis Patient seen and examined. Case will be reviewed with the resident team. Agree with plan of care is discussed with me and documented in the resident note. Problem List: (1) CHF exacerbation ICD Codes: I50.9 - Heart failure, unspecified Plan: Pt with history of CHF, presenting with acute exacerbation. Pt with worsening urinary frequency due to UTI, medication compliance questionable. It is unclear if patient has been taking his home diuretics as prescribed. BNP elevated to 1665. Pt denies chest pain troponin in ED within normal limits at 0.02. Echo from 2016 with EF of 45-50%. -Echo ordered, pt does not recall when he last had this done -Lasix 40mg IV daily, avoid late doses as patient already has nocturia and will wake up every hr to urinate. -Will supplement potassium -Continue home beta sharon as patient has mild decompensation without hypotension or evidence of hypoperfusion, see A. fib plan below -Pt has KINJAL-I allergy -Strict I's and O's -Fluid prescription to 1.5 L daily -Salt restriction of 2 g daily (2) COPD exacerbation ICD Codes: J44.1 - Obstructive chronic bronchitis with exacerbation Status: Acute Plan: Reported symptoms concerning for COPD exacerbation. with history of asbestosis, CXR is difficult to interpret in terms of evaluating for an acute COPD exacerbation. -Rocephin 1000 mg IV daily -Azithromycin 500 mg 1, continue azithromycin 250 mg po [place] -Duo nebs every 4 hours -Albuterol as needed for shortness of breath -Continue use of home inhalers -Oxygen saturation to be between 88-92 percent (3) Atrial fibrillation ICD Codes: I48.91 - Atrial fibrillation Status: Acute Plan: Continue home medications. Patient on anticoagulation and medication for rate control. He has not been compliant with taking all of his prescribed medications. -EKG ordered -Coumadin 2.5 mg Monday, Monday, Monday -Coumadin 5 mg Monday, Monday, , Monday -Metoprolol Tartrate 50 mg BID (4) Alcohol dependence ICD Codes: F10.20 - Alcohol dependence Status: Acute Plan: Pt endorses drinking 3-4 cocktails per night. Denies history of alcohol withdrawl symptoms in the past, including seizures.Last drink was 2 days ago. -Ethanol level ordered -WA protocol -Rally pack -Seizure precautions -Neuro checks Q4hrs -Monitor for signs of withdrawal (5) History of asbestosis ICD Codes: Z87.09 - Personal history of other diseases of the respiratory system Plan: Chest X ray consistent with prior asbestos exposure Stable from chest x-ray done 08/06/17 (6) UTI (urinary tract infection) ICD Codes: N39.0 - Urinary tract infection, site not specified Status: Acute Plan: Patient reports foul odor of urine. Urine is dark in color. UA with cloudy turbidity, 100 protein, large leukocyte esterase, moderate blood, 20 RBCs , many white blood cell clumps. Culture indicated -UTI covered with Rocephin, see plain above (7) Abdominal distension ICD Codes: R14.0 - Abdominal distension (gaseous) Plan: Pt with history of alcohol abuse, liver enzymes within normal limits. Pt denies abdominal pain, no pain with palpation of abdomen. -Consider abdominal US if abdominal distention does not resolve with diuretics or if patient develops abdominal pain (8) FEN/PPX Plan: Fluids: Fluid restriction 1.5L daily Electrolytes: COntinue to monitor and replete as needed Nutrition: Sodium restriction GI PPX: Protonix DVT ppx: Pt on Coumadin, SCDs, Aman hose Problem Qualifiers (1) UTI (urinary tract infection): Qualified Codes: N30.00 - Acute cystitis without hematuria Michael Key MD Sep 26, 2017 20:40
[2017-09-26] MEDS ORDERED: SODIUM CHLORIDE 0.9% FLUSH 10 ML FLUSH IV FLUSH SCH (21:00)
[2017-09-26] MEDS: SODIUM CHLORIDE 0.9% FLUSH 10 ML FLUSH IV FLUSH SCH (21:00)
[2017-09-26] MEDS: predniSONE 20 MG TAB PO SCH (21:37)
[2017-09-26] MEDS: POTASSIUM CHLORIDE 20 MEQ CONTROLLED RELEASE TAB PO SCH (21:37)
[2017-09-26] MEDS: METOPROLOL TARTRATE 50 MG TAB PO SCH (21:38)
[2017-09-26] MEDS: MAGNESIUM OXIDE 400 MG TAB PO SCH (21:38)
--- NOTE | 2017-09-26 21:55 | EKG ---
Date Performed: 09/26/2017 Time Performed: 12:00:54 PTAGE: 76 years EKG: ATRIAL FIBRILLATION WITH RAPID VENTRICULAR RESPONSE SEPTAL MYOCARDIAL INFARCTION ABNORMAL E CG PREVIOUS TRACING : 08/06/2017 12.05 Since previous tracing, no significant change noted DOCTOR: Ward Alejandro Interpretating Date/Time 09/26/2017 21:54:18
[2017-09-26] MEDS: traZODone HCL 50 MG TAB PO SCH (22:28)
[2017-09-26] MEDS: BUDESONIDE-FORMOTEROL 80/4.5 MCG INHALER INH SCH (22:28)
[2017-09-27] VITALS (10 sets, daily range): BP systolic 106–134; BP diastolic 57–92; PULSE 88–104; RESP 18–20; TEMP 97.2–98.6; O2SAT 93–97
[2017-09-27] MEDS: RESP: ALBUTEROL 2.5 MG/IPRATROPIUM 0.5 MG NEB (SCH) INH ×6 (02:42→23:34)
[2017-09-27] MEDS ORDERED: WARFARIN SOD 2.5 MG TAB PO SCH (09:00)
[2017-09-27] MEDS: SODIUM CHLORIDE 0.9% FLUSH 10 ML FLUSH IV FLUSH SCH ×2 (09:00→20:43)
[2017-09-27] MEDS ORDERED: ALFUZOSIN 10 MG PO SCH (09:00)
[2017-09-27 09:23] LABS: INTERNATIONAL NORMALIZED RATIO 3.1 RATIO; PROTHROMBIN TIME - PATIENT 30.8 SEC (9.8-11.6)
[2017-09-27 09:42] LABS: ALBUMIN 2.8 GM/DL (3.4-5.0); AST (GOT) 15 U/L (15-37); BLOOD UREA NITROGEN 20 MG/DL (7-18); CALCIUM 9.2 MG/DL (8.5-10.1); CHLORIDE 96 MEQ/L (98-107); CREATININE 1.18 MG/DL (0.60-1.30); GLOMERULAR FILTRATION RATE 60 ML/MIN (>89); GLUCOSE,RANDOM 131 MG/DL (74-106); SODIUM (NA) 137 MEQ/L (136-145)
[2017-09-27 09:43] LABS: ALT (GPT) 13 U/L (12-78)
[2017-09-27 09:45] LABS: ALKALINE PHOSPHATASE 77 U/L (45-117); TOTAL BILIRUBIN ADULT 0.7 MG/DL (0.2-1.0); TOTAL PROTEIN 7.1 GM/DL (6.4-8.2)
[2017-09-27] MEDS: TIOTROPIUM BROMIDE 18 MCG INH INH SCH (10:20)
[2017-09-27] MEDS: BUDESONIDE-FORMOTEROL 80/4.5 MCG INHALER INH SCH ×2 (10:20→20:42)
[2017-09-27] MEDS: busPIRone HCL 5 MG TAB PO SCH ×3 (10:21→17:27)
[2017-09-27] MEDS: FOLIC ACID 1 MG TAB PO SCH (10:21)
[2017-09-27] MEDS: THIAMINE HCL 100 MG TAB PO SCH (10:21)
[2017-09-27] MEDS: PRAVASTATIN SOD 40 MG TAB PO SCH (10:21)
[2017-09-27] MEDS: SPIRONOLACTONE 50 MG TAB PO SCH (10:21)
[2017-09-27] MEDS: CHOLECALCIFEROL (VIT D3) 1000 UNIT TAB PO SCH (10:21)
[2017-09-27] MEDS: TAMSULOSIN HCL 0.4 MG CAP PO SCH (10:21)
[2017-09-27] MEDS: METOPROLOL TARTRATE 50 MG TAB PO SCH ×2 (10:21→20:40)
[2017-09-27] MEDS: MAGNESIUM OXIDE 400 MG TAB PO SCH ×2 (10:22→20:40)
[2017-09-27] MEDS: POTASSIUM CHLORIDE 20 MEQ CONTROLLED RELEASE TAB PO SCH ×2 (10:22→20:40)
[2017-09-27] MEDS: LOSARTAN 25 MG TAB PO SCH (10:23)
[2017-09-27] MEDS: MULTIVITAMINS/MINERALS THERAPEUTIC TAB PO SCH (10:23)
[2017-09-27] MEDS: AZITHROMYCIN 250 MG TAB PO SCH (10:23)
[2017-09-27] MEDS: FUROSEMIDE 40 MG/4 ML VIAL IV PUSH SCH (10:23)
[2017-09-27] MEDS: PANTOPRAZOLE SOD 40 MG DELAYED RELEASE TAB PO SCH (10:23)
[2017-09-27] MEDS: FINASTERIDE 5 MG TAB PO SCH (10:25)
[2017-09-27] MEDS: predniSONE 20 MG TAB PO SCH ×2 (10:25→20:40)
[2017-09-27] MEDS: cefTRIAXone INJ 1,000 MG in SODIUM CHLORIDE 0.9% INJ 100 ML IV SCH (13:08)
--- NOTE | 2017-09-27 14:43 | HHI.FPPN ---
Subjective Remarks Pt seen and examined this morning. No acute events overnight. Pt has been afebrile, vital signs stable. Oxygen saturation between 94-97%, on 3L O2 Nasal canula. He reports that shortness of breath is improved. He denies chest pain, shortness of breath, abdominal pain. He has no additional acute concerns. Objective Vitals Vital Signs Date Time Temp Pulse Resp B/P (MAP) Pulse Ox O2 Delivery O2 Flow Rate FiO2 09/27/17 12:30 97.4 90 18 106/62 (77) 94 09/27/17 10:20 104 20 134/80 (98) 95 3.00 09/27/17 07:31 96 Nasal Cannula 3.00 09/27/17 05:56 91 18 134/73 (93) 96 Nasal Cannula 3.00 09/27/17 02:25 98.6 93 18 129/92 (104) 97 Nasal Cannula 3.00 09/26/17 22:28 92 18 135/68 (90) 97 Nasal Cannula 3.00 09/26/17 21:36 107 134/69 (90) 94 09/26/17 19:31 105 24 127/63 (84) 96 Nasal Cannula 3.00 09/26/17 19:11 94 Nasal Cannula 3.00 09/26/17 18:43 104 21 160/80 (106) 96 Nasal Cannula 3.00 09/26/17 15:14 106 21 152/88 (109) 95 Nasal Cannula 3.00 I/O 09/26/17 09/26/17 09/26/17 09/27/17 09/27/17 09/27/17 07:00 15:00 23:00 07:00 15:00 23:00 Intake Total 100 ml 480 ml 720 ml Output Total 650 ml Balance 100 ml -170 ml 720 ml Intake Oral 480 ml 720 ml IV Total 100 ml Output Urine Total 650 ml Result Diagram: 09/26/17 1215 09/27/17 0719 Objective Remarks GENERAL: This is a well-developed patient, in no apparent distress. SKIN: Ecchymoses present on upper extremities. Cool and dry. HEAD: Atraumatic. Normocephalic. EYES: Extraocular motions intact. No scleral icterus. No injection or drainage. ENT: Nose without bleeding, purulent drainage or septal hematoma. Airway patent. Poor dentition. NECK: Trachea midline. No JVD or lymphadenopathy. Supple, nontender, no meningeal signs. +R carotid bruit noted on prior exam CARDIOVASCULAR: Distant heart sounds. Irregular rate and rhythm. No significant murmurs appreciated. RESPIRATORY: Good air movement. No rales or rhonchi. No significant expiratory wheezing, significantly improved. GASTROINTESTINAL: Scar from exploratory laparotomy and prior peg tube. Abdomen soft, non-tender, mildly distended. No palpable masses. No guarding. MUSCULOSKELETAL: Extremities without clubbing, cyanosis, or edema. No joint tenderness, effusion, or edema noted. No calf tenderness. Negative Homans sign bilaterally. NEUROLOGICAL: Awake and alert. Cranial nerves II through XII intact. Normal speech. A/P Assessment and Plan Clinical assessment Shortness of breath, multifactorial secondary to clinical diagnosis of COPD and probable diagnosis of CHF with bilateral pleural effusions, increased ventricular response to atrial fibrillation.. BNP 1665. Probable urinary tract infection with too numerous to count white blood cells and 20 red blood cells per high-powered field. Urine culture and empiric antibiotics have been ordered Abnormal CBC with MCV of 103 and diminished platelets 137,000 with a mild monocytosis relative, suspect may be the effects of increased social alcohol. Anticoagulation with a therapeutic INR of 2.6 Hyperlipidemia Peripheral vascular disease CXR c/w with asbestosis Patient seen and examined. Case will be reviewed with the resident team. Agree with plan of care is discussed with me and documented in the resident note. Discharge Planning Anticipate discharge in 1-3 days pending improvement in respiratory status. Problem List: (1) CHF exacerbation ICD Codes: I50.9 - Heart failure, unspecified Plan: Pt with history of CHF, presenting with acute exacerbation. Pt with worsening urinary frequency due to UTI, medication compliance questionable. It is unclear if patient has been taking his home diuretics as prescribed. BNP elevated to 1665, decaresed to 1338. Pt denies chest pain troponin in ED within normal limits at 0.02. Echo from 2016 with EF of 45-50%. -Echo ordered -Lasix 40mg IV daily, avoid late doses as patient already has nocturia and will wake up every hr to urinate. -Will supplement potassium -Continue home beta sharon as patient has mild decompensation without hypotension or evidence of hypoperfusion, see A. fib plan below -Pt has KINJAL-I allergy -Strict I's and O's -Daily weights -Fluid restriction to 1.5 L daily -Salt restriction of 2 g daily (2) COPD exacerbation ICD Codes: J44.1 - Obstructive chronic bronchitis with exacerbation Status: Acute Plan: Reported symptoms concerning for COPD exacerbation. Pt with history of asbestosis, CXR is difficult to interpret in terms of evaluating for an acute COPD exacerbation. -Rocephin 1000 mg IV daily -Azithromycin 500 mg 1, continue azithromycin 250 mg po -Duo nebs every 4 hours -Albuterol as needed for shortness of breath -Continue use of home inhalers -Oxygen saturation to be between 88-92 percent (3) Atrial fibrillation ICD Codes: I48.91 - Atrial fibrillation Status: Acute Plan: Continue home medications. Patient on anticoagulation and medication for rate control. He has not been compliant with taking all of his prescribed medications. -Coumadin HELD, INR supratherapeutic at 3.1. -Will recheck INR tomorrow -Coumadin 2.5 mg Monday, Monday, Monday -Coumadin 5 mg Monday, Monday, , Monday -Metoprolol Tartrate 50 mg BID (4) Alcohol dependence ICD Codes: F10.20 - Alcohol dependence Status: Acute Plan: Pt endorses drinking 3-4 cocktails per night. Denies history of alcohol withdrawal symptoms in the past, including seizures.Last drink was 2 days prior to admission. -Ethanol level less than 3 -CIWA protocol, pt has not received any Ativan -Rally pack -Seizure precautions -Neuro checks Q4hrs -Monitor for signs of withdrawal (5) UTI (urinary tract infection) ICD Codes: N39.0 - Urinary tract infection, site not specified Status: Acute Plan: Patient reports foul odor of urine. Urine is dark in color. UA with cloudy turbidity, 100 protein, large leukocyte esterase, moderate blood, 20 RBCs , many white blood cell clumps. Culture indicated -UTI covered with Rocephin, see plain above -Urine culture pending (6) History of asbestosis ICD Codes: Z87.09 - Personal history of other diseases of the respiratory system Plan: Chest X ray consistent with prior asbestos exposure Stable from chest x-ray done 08/06/17 (7) Abdominal distension ICD Codes: R14.0 - Abdominal distension (gaseous) Plan: Pt with history of alcohol abuse, liver enzymes within normal limits. Pt denies abdominal pain, no pain with palpation of abdomen. -Consider abdominal US if abdominal distention does not resolve with diuretics or if patient develops abdominal pain (8) FEN/PPX Plan: Fluids: Fluid restriction 1.5L po daily Electrolytes: Continue to monitor and replete as needed Nutrition: Sodium restriction, regular diet GI PPX: Protonix DVT ppx: Pt on Coumadin, SCDs, Aman hose Problem Qualifiers (1) UTI (urinary tract infection): Qualified Codes: N30.00 - Acute cystitis without hematuria Rhona Page MD R3 Sep 27, 2017 14:43
[2017-09-27] MEDS: traZODone HCL 50 MG TAB PO SCH (20:40)
[2017-09-28] VITALS (7 sets, daily range): BP systolic 107–136; BP diastolic 59–82; PULSE 88–107; RESP 18–20; TEMP 97.2–98.2; O2SAT 91–97
[2017-09-28] MEDS: RESP: ALBUTEROL 2.5 MG/IPRATROPIUM 0.5 MG NEB (SCH) INH ×5 (04:23→16:00)
[2017-09-28 07:08] LABS: AUTOMATED NEUTROPHIL # 6.8 TH/MM3 (1.8-7.7); BASOPHIL % 0.3 % (0.0-2.0); HEMATOCRIT 35.6 % (39.0-51.0); LYMPH % 7.9 % (9.0-44.0); LYMPHOCYTE # 0.6 TH/MM3 (1.0-4.8); MEAN CELL VOLUME 100.5 FL (80.0-100.0); MEAN CORPUSCULAR HEMOGLOBIN 33.9 PG (27.0-34.0); MEAN CORPUSCULAR HGB CONC 33.8 % (32.0-36.0); MEAN PLATELET VOLUME 8.8 FL (7.0-11.0); MONO % 5.9 % (0.0-8.0); MONOCYTE # 0.5 TH/MM3 (0-0.9); NEUT % 85.9 % (16.0-70.0); PLATELET COUNT 152 TH/MM3 (150-450); RED BLOOD COUNT 3.54 MIL/MM3 (4.50-5.90); RED CELL DISTRIBUTION WIDTH 14.1 % (11.6-17.2)
[2017-09-28 07:12] LABS: INTERNATIONAL NORMALIZED RATIO 2.4 RATIO; PROTHROMBIN TIME - PATIENT 24.6 SEC (9.8-11.6)
[2017-09-28 07:32] LABS: ALBUMIN 2.9 GM/DL (3.4-5.0); AST (GOT) 25 U/L (15-37); BICARBONATE 33.4 MEQ/L (21.0-32.0); BLOOD UREA NITROGEN 25 MG/DL (7-18); CALCIUM 9.3 MG/DL (8.5-10.1); CHLORIDE 95 MEQ/L (98-107); CREATININE 1.32 MG/DL (0.60-1.30); GLOMERULAR FILTRATION RATE 53 ML/MIN (>89); GLUCOSE,RANDOM 129 MG/DL (74-106); SODIUM (NA) 135 MEQ/L (136-145)
[2017-09-28 07:33] LABS: ALT (GPT) 18 U/L (12-78)
[2017-09-28 07:35] LABS: ALKALINE PHOSPHATASE 77 U/L (45-117); TOTAL BILIRUBIN ADULT 0.5 MG/DL (0.2-1.0); TOTAL PROTEIN 6.9 GM/DL (6.4-8.2)
[2017-09-28] MEDS: TIOTROPIUM BROMIDE 18 MCG INH INH SCH (08:04)
[2017-09-28] MEDS: FUROSEMIDE 40 MG/4 ML VIAL IV PUSH SCH (08:04)
[2017-09-28] MEDS: BUDESONIDE-FORMOTEROL 80/4.5 MCG INHALER INH SCH (08:04)
[2017-09-28] MEDS: MULTIVITAMINS/MINERALS THERAPEUTIC TAB PO SCH (08:05)
[2017-09-28] MEDS: SODIUM CHLORIDE 0.9% FLUSH 10 ML FLUSH IV FLUSH SCH (08:05)
[2017-09-28] MEDS: POTASSIUM CHLORIDE 20 MEQ CONTROLLED RELEASE TAB PO SCH (08:05)
[2017-09-28] MEDS: TAMSULOSIN HCL 0.4 MG CAP PO SCH (08:05)
[2017-09-28] MEDS: PRAVASTATIN SOD 40 MG TAB PO SCH (08:05)
[2017-09-28] MEDS: CHOLECALCIFEROL (VIT D3) 1000 UNIT TAB PO SCH (08:05)
[2017-09-28] MEDS: LOSARTAN 25 MG TAB PO SCH (08:05)
[2017-09-28] MEDS: PANTOPRAZOLE SOD 40 MG DELAYED RELEASE TAB PO SCH (08:05)
[2017-09-28] MEDS: FOLIC ACID 1 MG TAB PO SCH (08:05)
[2017-09-28] MEDS: THIAMINE HCL 100 MG TAB PO SCH (08:06)
[2017-09-28] MEDS: predniSONE 20 MG TAB PO SCH (08:06)
[2017-09-28] MEDS: MAGNESIUM OXIDE 400 MG TAB PO SCH (08:06)
[2017-09-28] MEDS: SPIRONOLACTONE 50 MG TAB PO SCH (08:06)
[2017-09-28] MEDS: METOPROLOL TARTRATE 50 MG TAB PO SCH (08:06)
[2017-09-28] MEDS: busPIRone HCL 5 MG TAB PO SCH ×2 (08:06→12:07)
[2017-09-28] MEDS: FINASTERIDE 5 MG TAB PO SCH (08:06)
[2017-09-28] MEDS: AZITHROMYCIN 250 MG TAB PO SCH (08:07)
[2017-09-28] MEDS: cefTRIAXone INJ 1,000 MG in SODIUM CHLORIDE 0.9% INJ 100 ML IV SCH (12:08)
--- NOTE | 2017-09-28 13:14 | HHI.FPPN ---
Subjective Remarks Patient seen and examined bedside this morning. Patient states that he had no acute events overnight. He is breathing comfortably and in no respiratory distress at time of exam. He is on nasal cannula oxygen, and he does have an oxygen tank at home that he can use. Patient has not had any chest pain or palpitations. He denies any urinary changes. No fevers or chills. Patient is comfortable with going home if we discharge him. Objective Vitals Vital Signs Date Time Temp Pulse Resp B/P (MAP) Pulse Ox O2 Delivery O2 Flow Rate FiO2 09/28/17 08:52 91 Nasal Cannula 3.00 09/28/17 08:00 Nasal Cannula 2.00 09/28/17 08:00 97.4 88 18 116/75 (89) 97 09/28/17 08:00 103 09/28/17 04:12 97.4 106 18 125/72 (89) 95 09/28/17 04:00 Nasal Cannula 2.00 09/28/17 04:00 105 09/28/17 00:30 98.2 103 18 136/82 (100) 97 09/28/17 00:15 96 09/28/17 00:00 Nasal Cannula 2.00 09/27/17 23:36 97 Nasal Cannula 3.00 09/27/17 20:45 Nasal Cannula 3.00 09/27/17 20:22 97.7 103 18 110/57 (74) 93 09/27/17 20:00 98 09/27/17 16:46 96 Nasal Cannula 3.00 09/27/17 16:22 97.2 88 18 120/72 (88) 96 I/O 09/27/17 09/27/17 09/27/17 09/28/17 09/28/17 09/28/17 06:59 14:59 22:59 06:59 14:59 22:59 Intake Total 720 ml 360 ml 240 ml Output Total 150 ml 750 ml Balance 720 ml 360 ml 90 ml -750 ml Intake Oral 720 ml 360 ml 240 ml Output Urine Total 150 ml 750 ml # Voids 1 # Bowel Movements 0 Result Diagram: 09/28/17 0556 09/28/17 0556 Objective Remarks GENERAL: This is a well-developed patient, in no apparent distress. SKIN: Ecchymoses present on upper extremities. Cool and dry. HEAD: Atraumatic. Normocephalic. EYES: Extraocular motions intact. No scleral icterus. No injection or drainage. ENT: Nose without bleeding, purulent drainage or septal hematoma. Airway patent. Poor dentition. NECK: Trachea midline. No JVD or lymphadenopathy. Supple, nontender, no meningeal signs. +R carotid bruit noted on prior exam CARDIOVASCULAR: Distant heart sounds. Irregular rate and rhythm. No significant murmurs appreciated. RESPIRATORY: Good air movement. No rales or rhonchi. No significant expiratory wheezing, significantly improved. GASTROINTESTINAL: Scar from exploratory laparotomy and prior peg tube. Abdomen soft, non-tender, mildly distended. No palpable masses. No guarding. MUSCULOSKELETAL: Extremities without clubbing, cyanosis, or edema. No joint tenderness, effusion, or edema noted. No calf tenderness. Negative Homans sign bilaterally. NEUROLOGICAL: Awake and alert. Cranial nerves II through XII intact. Normal speech. A/P Assessment and Plan Clinical assessment Shortness of breath, multifactorial secondary to clinical diagnosis of COPD and probable diagnosis of CHF with bilateral pleural effusions, increased ventricular response to atrial fibrillation.. BNP 1665. Probable urinary tract infection with too numerous to count white blood cells and 20 red blood cells per high-powered field. Urine culture and empiric antibiotics have been ordered Abnormal CBC with MCV of 103 and diminished platelets 137,000 with a mild monocytosis relative, suspect may be the effects of increased social alcohol. Anticoagulation Hyperlipidemia Peripheral vascular disease CXR c/w with asbestosis Patient seen and examined. Case will be reviewed with the resident team. Agree with plan of care is discussed with me and documented in the resident note. Discharge Planning Anticipate discharge in 1-3 days pending improvement in respiratory status. Problem List: (1) CHF exacerbation ICD Codes: I50.9 - Heart failure, unspecified Plan: Pt with history of CHF, presenting with acute exacerbation. Pt with worsening urinary frequency due to UTI, medication compliance questionable. It is unclear if patient has been taking his home diuretics as prescribed. BNP elevated to 1665, decaresed to 1338. Pt denies chest pain troponin in ED within normal limits at 0.02. Echo from 2016 with EF of 45-50%. -Echo ordered, follow-up as outpatient -Lasix 40mg IV daily, avoid late doses as patient already has nocturia and will wake up every hr to urinate. - Will Continue furosemide 20 by mouth twice a day at home at discharge -Will supplement potassium -Continue home beta sharon as patient has mild decompensation without hypotension or evidence of hypoperfusion, see A. fib plan below -Pt has KINJAL-I allergy -Strict I's and O's -Daily weights -Fluid restriction to 1.5 L daily -Salt restriction of 2 g daily (2) COPD exacerbation ICD Codes: J44.1 - Obstructive chronic bronchitis with exacerbation Status: Acute Plan: Reported symptoms concerning for COPD exacerbation. Pt with history of asbestosis, CXR is difficult to interpret in terms of evaluating for an acute COPD exacerbation. Likely COPD exacerbation and not pneumonia considering patient is afebrile and chest x-ray stable -Rocephin 1000 mg IV daily -Azithromycin 500 mg 1, continue azithromycin 250 mg po -Duo nebs every 4 hours -Albuterol as needed for shortness of breath -Continue use of home inhalers -Oxygen saturation to be between 88-92 percent Will discharge on amoxicillin (3) Atrial fibrillation ICD Codes: I48.91 - Atrial fibrillation Status: Acute Plan: Continue home medications. Patient on anticoagulation and medication for rate control. He has not been compliant with taking all of his prescribed medications. -INR supratherapeutic at 3.1 on 09/27, in range on 09/28 at 2.7 -Will recheck INR as outpatient -Coumadin 2.5 mg Monday, Monday, Monday -Coumadin 5 mg Monday, Monday, , Monday -Metoprolol Tartrate 50 mg BID (4) Alcohol dependence ICD Codes: F10.20 - Alcohol dependence Status: Resolved Plan: Pt endorses drinking 3-4 cocktails per night. Denies history of alcohol withdrawal symptoms in the past, including seizures.Last drink was 2 days prior to admission. -Ethanol level less than 3 -CIWA protocol, pt has not received any Ativan -Rally pack -Seizure precautions -Neuro checks Q4hrs -Monitor for signs of withdrawal (5) UTI (urinary tract infection) ICD Codes: N39.0 - Urinary tract infection, site not specified Status: Acute Plan: Patient reports foul odor of urine. Urine is dark in color. UA with cloudy turbidity, 100 protein, large leukocyte esterase, moderate blood, 20 RBCs , many white blood cell clumps. Culture indicated -UTI covered with Rocephin, see plain above -Urine culture grew bacteria sensitive to amoxicillin (6) History of asbestosis ICD Codes: Z87.09 - Personal history of other diseases of the respiratory system Plan: Chest X ray consistent with prior asbestos exposure Stable from chest x-ray done 08/06/17 (7) Abdominal distension ICD Codes: R14.0 - Abdominal distension (gaseous) Status: Resolved Plan: Pt with history of alcohol abuse, liver enzymes within normal limits. Pt denies abdominal pain, no pain with palpation of abdomen. -Consider abdominal US if abdominal distention does not resolve with diuretics or if patient develops abdominal pain (8) FEN/PPX Plan: Fluids: Fluid restriction 1.5L po daily Electrolytes: Continue to monitor and replete as needed Nutrition: Sodium restriction, regular diet GI PPX: Protonix DVT ppx: Pt on Coumadin, SCDs, Aman hose Problem Qualifiers (1) UTI (urinary tract infection): Qualified Codes: N30.00 - Acute cystitis without hematuria Rebeca Valiente MD R2 Sep 28, 2017 13:14
[2017-09-28] MEDS ORDERED: Albuterol-Ipratropium Neb INH (13:21)
[2017-09-28] MEDS ORDERED: PRED20 PO (13:21)
[2017-09-28] MEDS ORDERED: AMOX500C PO (13:21)
--- NOTE | 2017-09-28 13:22 | HHI.DCPOC ---
Discharge Care Plan Diagnosis: (1) Chronic obstructive pulmonary disease (2) Anticoagulated on Coumadin (3) Volume overload Goals to Promote Your Health * To prevent worsening of your condition and complications * To maintain your health at the optimal level Directions to Meet Your Goals Take your medications as prescribed Follow your dietary instruction Follow activity as directed Keep your appointments as scheduled Take your immunizations and boosters as scheduled If your symptoms worsen call your PCP, if no PCP go to Urgent Care Center or Emergency Room Smoking is Dangerous to Your Health. Avoid second hand smoke Call the 24-hour hour crisis hotline for domestic abuse at Rebeca Valiente MD R2 Sep 28, 2017 13:22
[2017-09-28] MEDS ORDERED: WARFARIN SOD 5 MG TAB PO SCH (16:00)
--- NOTE | 2017-09-28 18:15 | ECHRPT ---
Indication: HEART FAILURE CONCLUSIONS Mildly dilated left ventricle. Mild concentric left ventricular hypertrophy. The left ventricular systolic function is severely reduced with an estimated ejection fraction less than 20%. Trace mitral valve regurgitation. Trace aortic valve regurgitation. Aortic valve sclerosis is present. There is moderate tricuspid regurgitation. BP: 134 / 73 HR: 91 Rhythm: MEASUREMENTS (Male / Female) Normal Values Technical Quality:Good 2D ECHO LV Diastolic Diameter PLAX 4.9 cm 4.2 - 5.9 / 3.9 - 5.3 cm LV Systolic Diameter PLAX 4.5 cm IVS Diastolic Thickness 1.3 cm 0.6 - 1.0 / 0.6 - 0.9 cm LVPW Diastolic Thickness 1.1 cm 0.6 - 1.0 / 0.6 - 0.9 cm LV Relative Wall Thickness 0.5 LA Systolic Diameter LX 4.1 cm 3.0 - 4.0 / 2.7 - 3.8 cm M-MODE Aortic Root Diameter MM 3.2 cm AV Cusp Separation MM 2.0 cm DOPPLER Mitral E Point Velocity 93.8 cm/s TR Peak Velocity 263.0 cm/s TR Peak Gradient 27.7 mmHg FINDINGS LEFT VENTRICLE Mildly dilated left ventricle. Mild concentric left ventricular hypertrophy. The left ventricular systolic function is severely reduced with an estimated ejection fraction less than 20%. RIGHT VENTRICLE Normal right ventricular size and systolic function. LEFT ATRIUM The left atrial size is normal. RIGHT ATRIUM The right atrial size is normal. ATRIAL SEPTUM Normal atrial septal thickness without atrial level shunting by limited color doppler interrogation. AORTA The aortic root and proximal ascending aorta are normal in size on limited imaging. MITRAL VALVE Trace mitral valve regurgitation. AORTIC VALVE Trace aortic valve regurgitation. Aortic valve sclerosis is present. TRICUSPID VALVE There is moderate tricuspid regurgitation. PULMONARY VALVE The pulmonary valve is not well visualized. VESSELS The inferior vena cava is normal in size. PERICARDIUM No pericardial effusion. Dada Christensen MD (Electronically Signed) Final Date:28 September 2017 18:14
== END 2017-09-28 16:50 | disposition home or self-care (01) | DRG 292 ==
LOC: NEPC 11:53 → NEDA 13:53 → NEDH 20:26 → N04A 09-27 12:22
PROVIDERS: ADMIT Family Medicine; ATTEND Family Medicine
DX: I11.0 Hypertensive heart disease with heart failure (principal); N30.00 Acute cystitis without hematuria; R06.03 Acute respiratory distress; J44.1 Chronic obstructive pulmonary disease with (acute) exacerbation; I48.91 Unspecified atrial fibrillation; I73.9 Peripheral vascular disease, unspecified; I50.9 Heart failure, unspecified; R09.02 Hypoxemia; Z77.090 Contact with and (suspected) exposure to asbestos; F41.9 Anxiety disorder, unspecified; I25.10 Atherosclerotic heart disease of native coronary artery without angina pectoris; H91.90 Unspecified hearing loss, unspecified ear; E78.5 Hyperlipidemia, unspecified; F10.20 Alcohol dependence, uncomplicated; F17.210 Nicotine dependence, cigarettes, uncomplicated; Z91.14 Patient's other noncompliance with medication regimen; Z91.19 Patient's noncompliance with other medical treatment and regimen; Z86.73 Personal history of transient ischemic attack (TIA), and cerebral infarction without residual deficits; Z79.01 Long term (current) use of anticoagulants; Z95.5 Presence of coronary angioplasty implant and graft; Z87.440 Personal history of urinary (tract) infections
CPT/HCPCS: 71046; 80053; 80307; 81001; 82550; 83735; 83880; 84484; 85025; 85610; 85730; 87040; 87077; 87086; 87186; 87804; 93005; 93306; 94640; 94664; 96374; 96375; J0696; J1940; J2930; J7512

== ENCOUNTER 2017-10-13 14:06 | Emergency (ER) | payer OTHER, MEDICARE ==
[~2017-10-13 14:06] MED LIST changes: +AMOX500C PO; +Albuterol-Ipratropium Neb INH; -BACL20TA PO; +FLUT1SPR14; +NITR1SUB2 SL; -OXYGENTANK NAS.CANULA; +PRED20 PO; +TRAZ50TA12 PO
[2017-10-13 14:14] VITALS: BP 102/63; PULSE 92; RESP 20; TEMP 98.5; O2SAT 98
[2017-10-13 14:41] VITALS: BP 102/56; PULSE 89; RESP 22; O2SAT 96
[2017-10-13] MEDS ORDERED: SODIUM CHLORIDE 0.9% FLUSH 10 ML FLUSH IVF PRN (15:00)
[2017-10-13] MEDS ORDERED: MORPHINE SULFATE 2 MG/ML INJ IV PUSH ONE (15:00)
--- NOTE | 2017-10-13 15:11 | RADRPT ---
EXAM DATE/TIME: 10/13/2017 14:52 [facility] COMPARISON: CT THORAX W/O CONTRAST, July 28, 2016, 17:35. CHEST SINGLE AP, August 06, 2017, 12:19. INDICATIONS : Short of breath MEDICAL HISTORY : Hypertension. Chronic obstructive pulmonary disease. Congestive heart failure. Afib, Emphysema SURGICAL HISTORY : None. ENCOUNTER: Initial ACUITY: 1 day PAIN SCORE: 0/10 LOCATION: Bilateral chest FINDINGS: A small right pleural effusion is stable. Calcified pleural plaques are again noted bilaterally. The heart is stable. Right basilar atelectasis and/or infiltrate is noted. Minimal emphysematous changes are noted. CONCLUSION: 1. Small stable right pleural effusion. 2. Right basilar atelectasis and/or infiltrate. 3. Minimal emphysematous changes. 4. Stable calcified pleural plaques bilaterally. Johnson Brewer MD on October 13, 2017 at 15:03 Board Certified Radiologist. This report was verified electronically.
[2017-10-13 15:20] LABS: CHLORIDE 94 MEQ/L (98-107); SODIUM (NA) 132 MEQ/L (136-145)
[2017-10-13 15:23] LABS: ALBUMIN 2.9 GM/DL (3.4-5.0); BICARBONATE 30.1 MEQ/L (21.0-32.0); CALCIUM 8.9 MG/DL (8.5-10.1); GLUCOSE,RANDOM 117 MG/DL (74-106); MAGNESIUM 1.9 MG/DL (1.5-2.5)
[2017-10-13 15:24] LABS: BLOOD UREA NITROGEN 37 MG/DL (7-18)
[2017-10-13 15:25] LABS: INTERNATIONAL NORMALIZED RATIO 1.7 RATIO; PROTHROMBIN TIME - PATIENT 17.7 SEC (9.8-11.6)
[2017-10-13 15:26] LABS: ALT (GPT) 55 U/L (12-78); AST (GOT) 30 U/L (15-37)
[2017-10-13 15:27] LABS: GLOMERULAR FILTRATION RATE 59 ML/MIN (>89)
[2017-10-13 15:28] LABS: TOTAL BILIRUBIN ADULT 0.7 MG/DL (0.2-1.0); TOTAL PROTEIN 6.7 GM/DL (6.4-8.2)
[2017-10-13 15:29] LABS: ALKALINE PHOSPHATASE 62 U/L (45-117)
[2017-10-13 15:30] VITALS: BP 116/65; PULSE 89; RESP 20; O2SAT 97
[2017-10-13 15:31] LABS: TROPONIN I 0.02 NG/ML (0.02-0.05)
[2017-10-13 15:41] LABS: AUTOMATED NEUTROPHIL # 7.2 TH/MM3 (1.8-7.7); BASOPHIL % 0.1 % (0.0-2.0); EOSINOPHIL # 0.1 TH/MM3 (0-0.4); EOSINOPHIL % 0.9 % (0.0-4.0); HEMATOCRIT 40.2 % (39.0-51.0); HEMOGLOBIN 13.4 GM/DL (13.0-17.0); LYMPHOCYTE # 1.1 TH/MM3 (1.0-4.8); MEAN CELL VOLUME 99.4 FL (80.0-100.0); MEAN CORPUSCULAR HGB CONC 33.2 % (32.0-36.0); MEAN PLATELET VOLUME 8.4 FL (7.0-11.0); MONO % 5.4 % (0.0-8.0); MONOCYTE # 0.5 TH/MM3 (0-0.9); NEUT % 81.6 % (16.0-70.0); PLATELET COUNT 149 TH/MM3 (150-450); RED BLOOD COUNT 4.05 MIL/MM3 (4.50-5.90); WHITE BLOOD COUNT 8.9 TH/MM3 (4.0-11.0)
--- NOTE | 2017-10-13 15:56 | PD ---
HPI Chief Complaint: Pain: Acute or Chronic Time Seen by Provider: 14:18 Travel History International Travel<30 days: No Contact w/Intl Traveler<30days: No Traveled to known affect area: No History of Present Illness HPI Patient is a 76-year-old male smoker alcohol abuser presents the emergency department for evaluation of left shoulder pain for the past few days. Patient states he is also been noticing some shortness of breath. Recent admission to the hospital for CHF exacerbation and recent echo last month showing an EF less than 20%. He is followed at the [facility] and has an appointment with his cosmetic consultant coming up soon. Denies any chest pain denies abdominal pain nausea vomiting. He states he also has significant peripheral artery disease in his lower extremities as well as his left shoulder is being evaluated for stents in both. He denies any injury to his left shoulder denies any numbness or tingling or weakness. States his shortness of breath is slightly worse from baseline. Symptoms for the past few days, gradually worsening, associated sinus symptoms and context as above. PFSH Past Medical History Hx Anticoagulant Therapy: Yes Arthritis: No Asthma: No Atrial Fibrillation: Yes Autoimmune Disease: No Anxiety: Yes Depression: No Heart Rhythm Problems: Yes (afib) Cancer: No Cardiovascular Problems: Yes ("BLOCKAGE IN LEFT SHOULDER/NECK") High Cholesterol: Yes Chest Pain: No Congestive Heart Failure: Yes COPD: Yes Cerebrovascular Accident: Yes Diabetes: No Diminished Hearing: Yes Endocrine: No Gastrointestinal Disorders: Yes GERD: No Genitourinary: No Headaches: No Hepatitis: No Hiatal Hernia: No Heparin Induced Thrombocytopen: No Hypertension: Yes Immune Disorder: No Implanted Vascular Access Dvce: No Kidney Stones: No Musculoskeletal: No Neurologic: No Psychiatric: No Reproductive: No Respiratory: Yes Immunizations Current: Yes Migraines: No Myocardial Infarction: No Radiation Therapy: No Renal Failure: No Seizures: No Sickle Cell Disease: No Sleep Apnea: No Thyroid Disease: No Ulcer: No Influenza Vaccination: No Past Surgical History Abdominal Surgery: Yes AICD: No Appendectomy: Yes Body Medical Devices: PT. POOR HISTORIAN, DOES NOT REMEMBER WANT MEDS HE IS TAKING. Cardiac Surgery: No Cholecystectomy: No Ear Surgery: No Endocrine Surgery: No Eye Surgery: No Genitourinary Surgery: No Insulin Pump: No Joint Replacement: No Neurologic Surgery: No Oral Surgery: No Pacemaker: No Thoracic Surgery: No Tonsillectomy: Yes Other Surgery: Yes Social History Alcohol Use: Yes (3-4DRINKS PER DAY) Tobacco Use: Yes (STATES HAS CIGARETTES, "DOESNT INHALE") Substance Use: No Allergies-Medications (Allergen,Severity, Reaction): Coded Allergies: gabapentin (Verified Allergy, Unknown, UNKNOWN, 10/13/17) lisinopril (Verified Adverse Reaction, Intermediate, GI UPSET, 10/13/17) Reported Meds & Prescriptions Reported Meds & Active Scripts Active Flexeril (Cyclobenzaprine HCl) 10 Mg Tab 10 Mg PO TID [Albuterol-Ipratropium Neb] 1 AMPULE Nebu 1 Ampule INH Q4HR NEB Proair Hfa 8.5 GM Inh (Albuterol Sulfate) 90 Mcg/Act Aer 1 Puff INH Q2HR PRN 108 mcg/actuation Reported Nitroglycerin SL (Nitroglycerin) 0.3 Mg Subl 0.3 Mg SL DIRECTED PRN ONE TABLET UNDER THE TONGUE NEEDED FOR CHEST PAIN, MAY REPEAT EVERY FIVE MINUTES FOR A TOTAL OF 3 DOSES OR CALL 911 IF NO RELIEF Trazodone (Trazodone HCl) 50 Mg Tab 50 Mg PO HS Kls Aller-Bebo (Fluticasone Propionate (Nasal)) 50 Mcg/Actuation Spr Spiriva Handihaler (Tiotropium Inh) 18 Mcg Cap 18 Mcg INH DAILY 1 capsule = 18 mcg Spironolactone 25 Mg Tab 50 Mg PO DAILY Pravastatin 40 Mg Tab 40 Mg PO DAILY Metoprolol Tartrate 50 Mg Tab 50 Mg PO BID Magnesium Oxide 400 Mg Tab 400 Mg PO BID Losartan (Losartan Potassium) 25 Mg Tab 25 Mg PO DAILY Mucus Relief ER (Guaifenesin) 600 Mg Tab 400 Mg PO BID PRN Furosemide 20 Mg Tab 20 Mg PO BID Finasteride 5 Mg Tab 5 Mg PO DAILY Do not crush. Buspirone (Buspirone HCl) 15 Mg Tab 15 Mg PO TID Symbicort Inh (Budesonide/Formoterol Fumarate) 80-4.5 Mcg/Act Aero 2 Puff INH Q12HR Alfuzosin ER 24 HR 10 Mg Tab 10 Mg PO DAILY Warfarin 2.5 Mg Tab 2.5 Mg PO - Warfarin 5 Mg Tab 5 Mg PO MON,,,MON Folic Acid 400 Mcg Tab 400 Mcg PO DAILY Vitamin D3 (Cholecalciferol) 1,000 Unit Tab 1,000 Units PO DAILY Review of Systems Except as stated in HPI: all other systems reviewed are Neg Physical Exam Narrative GENERAL: Well-developed, thin, pleasant gentleman in no obvious distress. SKIN: Focused skin assessment warm/dry. HEAD: Atraumatic. Normocephalic. EYES: Pupils equal and round. No scleral icterus. No injection or drainage. ENT: No nasal bleeding or discharge. Mucous membranes pink and moist. NECK: Trachea midline. No JVD. CARDIOVASCULAR: Regular rate and rhythm. No murmur appreciated. RESPIRATORY: No accessory muscle use. Clear to auscultation. Breath sounds equal bilaterally. GASTROINTESTINAL: Abdomen soft, non-tender, nondistended. Hepatic and splenic margins not palpable. MUSCULOSKELETAL: No obvious deformities. No clubbing. No cyanosis. No edema. There is full but albeit tender range of motion of the left shoulder through active and passive range of motion. Pulses motor and sensory intact distally and 2+ bilateral equal in all 4 extremities. NEUROLOGICAL: Awake and alert. No obvious cranial nerve deficits. Motor grossly within normal limits. Normal speech. PSYCHIATRIC: Appropriate mood and affect; insight and judgment normal. Data Data Last Documented VS Vital Signs Date Time Temp Pulse Resp B/P (MAP) Pulse Ox O2 Delivery O2 Flow Rate FiO2 10/13/17 16:36 82 21 118/69 (85) 97 Nasal Cannula 2.00 10/13/17 14:14 98.5 Orders Orders Electrocardiogram (10/13/17 14:48) Ckmb (Isoenzyme) Profile (10/13/17 14:48) Complete Blood Count With Diff (10/13/17 14:48) Comprehensive Metabolic Panel (10/13/17 14:48) Magnesium (Mg) (10/13/17 14:48) Prothrombin Time / Inr (Pt) (10/13/17 14:48) Act Partial Throm Time (Ptt) (10/13/17 14:48) Troponin I (10/13/17 14:48) Chest, Single Ap (10/13/17 14:48) Ecg Monitoring (10/13/17 14:48) Iv Access Insert/Monitor (10/13/17 14:48) Oximetry (10/13/17 14:48) Oxygen Administration (10/13/17 14:48) Sodium Chloride 0.9% Flush (Ns Flush) (10/13/17 15:00) Morphine Inj (Morphine Inj) (10/13/17 15:00) Ed Discharge Order (10/13/17 16:31) Labs Laboratory Tests Test 10/13/17 15:00 White Blood Count 8.9 TH/MM3 Red Blood Count 4.05 MIL/MM3 Hemoglobin 13.4 GM/DL Hematocrit 40.2 % Mean Corpuscular Volume 99.4 FL Mean Corpuscular Hemoglobin 33.0 PG Mean Corpuscular Hemoglobin Concent 33.2 % Red Cell Distribution Width 14.0 % Platelet Count 149 TH/MM3 Mean Platelet Volume 8.4 FL Neutrophils (%) (Auto) 81.6 % Lymphocytes (%) (Auto) 12.0 % Monocytes (%) (Auto) 5.4 % Eosinophils (%) (Auto) 0.9 % Basophils (%) (Auto) 0.1 % Neutrophils # (Auto) 7.2 TH/MM3 Lymphocytes # (Auto) 1.1 TH/MM3 Monocytes # (Auto) 0.5 TH/MM3 Eosinophils # (Auto) 0.1 TH/MM3 Basophils # (Auto) 0.0 TH/MM3 CBC Comment DIFF FINAL Differential Comment Prothrombin Time 17.7 SEC Prothromb Time International Ratio 1.7 RATIO Activated Partial Thromboplast Time 27.8 SEC Blood Urea Nitrogen 37 MG/DL Creatinine 1.20 MG/DL Random Glucose 117 MG/DL Total Protein 6.7 GM/DL Albumin 2.9 GM/DL Calcium Level 8.9 MG/DL Magnesium Level 1.9 MG/DL Alkaline Phosphatase 62 U/L Aspartate Amino Transf (AST/SGOT) 30 U/L Alanine Aminotransferase (ALT/SGPT) 55 U/L Total Bilirubin 0.7 MG/DL Sodium Level 132 MEQ/L Potassium Level 4.1 MEQ/L Chloride Level 94 MEQ/L Carbon Dioxide Level 30.1 MEQ/L Anion Gap 8 MEQ/L Estimat Glomerular Filtration Rate 59 ML/MIN Total Creatine Kinase 29 U/L Troponin I 0.02 NG/ML [facility] Medical Decision Making Medical Screen Exam Complete: Yes Emergency Medical Condition: Yes Differential Diagnosis Chronic CHF, left shoulder pain, ACS, [place]. Narrative Course Patient room to the emergency department, his shoulder pain appears to be highly musculoskeletal, there is no bony tenderness and no indication for direct imaging of the shoulder. I do not think that his symptoms are consistent with an acute myocardial infarction. Patient's shortness of breath on the other hand is slightly worse from baseline according to him, has been worked up here in the emergency department troponin EKG negative, blood work is reassuring, his chest x-ray does show pleural effusion but appears to be somewhat better than on his last admission last month. He was monitored for some time in the emergency department and is saturating quite well on his home nasal cannula, had a lengthy discussion with the patient that at this time I think he would be best served by following up with his cosmetic consultant rather than being admitted to the hospital for shortness of breath and he states he does not want to be admitted to the hospital and just wants something to help him sleep for his left shoulder pain. I did discuss with him the possibility of hospice enrollment in the future and have provided him some documentation at his request for hospice. I also suggested that he discuss this with his cosmetic consultant as soon as possible. I discussed that at any time should his shortness of breath worse than he can return to the emergency department for repeat evaluation. Diagnosis Primary Impression: Shoulder pain, left Additional Impression: SOB (shortness of breath) Additional Instructions: Call your regular doctor and your cosmetic consultant first thing monday morning for a follow up. Med/Other Pt SpecificInfo: Prescription(s) given Scripts Cyclobenzaprine (Flexeril) 10 Mg Tab 10 MG PO TID for Muscle Spasm, #20 TAB 0 Refills Prov: Johnson Clemons MD 10/13/17 Disposition: 01 DISCHARGE HOME Condition: Stable Johnson Clemons MD Oct 13, 2017 15:56
[2017-10-13] MEDS ORDERED: CYCL10TA PO (16:30)
[2017-10-13 16:36] VITALS: BP 118/69
[2017-10-14] MEDS ORDERED: PRED20 PO (23:26)
--- NOTE | 2017-10-15 00:02 | EKG ---
Date Performed: 10/13/2017 Time Performed: 14:58:06 PTAGE: 76 years EKG: ATRIAL FIBRILLATION SEPTAL MYOCARDIAL INFARCTION NON-SPECIFIC ST/T WAVE CHANGES ABNORMAL EC G PREVIOUS TRACING : 09/26/2017 12.00 Compared to prior tracing, rate has decreased DOCTOR: Bk Hughes Interpretating Date/Time 10/15/2017 00:01:30
== END 2017-10-13 17:03 | disposition home or self-care (01) ==
LOC: PHED 14:06
DX: M25.512 Pain in left shoulder (principal); R06.02 Shortness of breath; I48.91 Unspecified atrial fibrillation; I73.9 Peripheral vascular disease, unspecified; J44.9 Chronic obstructive pulmonary disease, unspecified; I11.0 Hypertensive heart disease with heart failure; F10.10 Alcohol abuse, uncomplicated; Z79.01 Long term (current) use of anticoagulants; Z72.0 Tobacco use
CPT/HCPCS: 71045; 80053; 82550; 83735; 84484; 85025; 85610; 85730; 93005; 96374; 99285; J2270

== ENCOUNTER 2017-10-14 19:04 | Emergency (ER) | payer MEDICARE, OTHER ==
[~2017-10-14 19:04] MED LIST changes: +CYCL10TA PO
[2017-10-14 19:14] VITALS: BP 126/65; PULSE 101; RESP 20; TEMP 97.8; O2SAT 98
--- NOTE | 2017-10-14 19:16 | PD ---
HPI Chief Complaint: Respiratory Symptoms Time Seen by Provider: 19:15 Travel History International Travel<30 days: No Contact w/Intl Traveler<30days: No Traveled to known affect area: No History of Present Illness HPI 76-year-old male came to the emergency room with history of shortness of breath. Patient has history of peripheral vascular disease and congestive heart failure. Patient says that this is been going on for past 2 days. He was actually seen in the emergency room in [place] yesterday but patient says he mainly went there for neck pain on the left side going to his left shoulder. Patient was seen by the ER physician evaluated and then discharged home. Patient says now his shortness of breath has worsened. He requires oxygen at home but it was worse on ambulation. No chest pain. He has chronic leg pain from the claudication due to his PVD. Patient is being seen at [facility] for that and this Monday has an appointment for CAT scan to check for blockage of his legs. Vital signs were stable. Patient appeared to be anxious and in somewhat distress. He received one albuterol nebulizer en route by EMS. As that he called his roommate and asked him to call 911. [facility] Past Medical History Narrative Medical List of his past medical, surgical, social and family history is reviewed from the nursing note. Hx Anticoagulant Therapy: Yes Arthritis: No Asthma: No Atrial Fibrillation: Yes Autoimmune Disease: No Anxiety: Yes Depression: No Heart Rhythm Problems: Yes (afib) Cancer: No Cardiovascular Problems: Yes ("BLOCKAGE IN LEFT SHOULDER/NECK") High Cholesterol: Yes Chest Pain: No Congestive Heart Failure: Yes COPD: Yes Cerebrovascular Accident: Yes Diabetes: No Diminished Hearing: Yes Endocrine: No Gastrointestinal Disorders: Yes GERD: No Genitourinary: No Headaches: No Hepatitis: No Hiatal Hernia: No Heparin Induced Thrombocytopen: No Hypertension: Yes Immune Disorder: No Implanted Vascular Access Dvce: No Kidney Stones: No Musculoskeletal: No Neurologic: No Psychiatric: No Reproductive: No Respiratory: Yes Immunizations Current: Yes Migraines: No Myocardial Infarction: No Radiation Therapy: No Renal Failure: No Seizures: No Sickle Cell Disease: No Sleep Apnea: No Thyroid Disease: No Ulcer: No Past Surgical History Abdominal Surgery: Yes AICD: No Appendectomy: Yes Body Medical Devices: PT. POOR HISTORIAN, DOES NOT REMEMBER WANT MEDS HE IS TAKING. Cardiac Surgery: No Cholecystectomy: No Ear Surgery: No Endocrine Surgery: No Eye Surgery: No Genitourinary Surgery: No Insulin Pump: No Joint Replacement: No Neurologic Surgery: No Oral Surgery: No Pacemaker: No Thoracic Surgery: No Tonsillectomy: Yes Other Surgery: Yes Social History Alcohol Use: Yes (3-4DRINKS PER DAY) Tobacco Use: Yes (STATES HAS CIGARETTES, "DOESNT INHALE") Substance Use: No Allergies-Medications (Allergen,Severity, Reaction): Coded Allergies: gabapentin (Verified Allergy, Unknown, UNKNOWN, 10/14/17) lisinopril (Verified Adverse Reaction, Intermediate, GI UPSET, 10/14/17) Comments list of his allergies reviewed from the nursing note. Reported Meds & Prescriptions Reported Meds & Active Scripts Active Prednisone 20 Mg Tab 20 Mg PO BID 5 Days Flexeril (Cyclobenzaprine HCl) 10 Mg Tab 10 Mg PO TID [Albuterol-Ipratropium Neb] 1 AMPULE Nebu 1 Ampule INH Q4HR NEB Proair Hfa 8.5 GM Inh (Albuterol Sulfate) 90 Mcg/Act Aer 1 Puff INH Q2HR PRN 108 mcg/actuation Reported Nitroglycerin SL (Nitroglycerin) 0.3 Mg Subl 0.3 Mg SL DIRECTED PRN ONE TABLET UNDER THE TONGUE NEEDED FOR CHEST PAIN, MAY REPEAT EVERY FIVE MINUTES FOR A TOTAL OF 3 DOSES OR CALL 911 IF NO RELIEF Trazodone (Trazodone HCl) 50 Mg Tab 50 Mg PO HS Kls Aller-Bebo (Fluticasone Propionate (Nasal)) 50 Mcg/Actuation Spr Spiriva Handihaler (Tiotropium Inh) 18 Mcg Cap 18 Mcg INH DAILY 1 capsule = 18 mcg Spironolactone 25 Mg Tab 50 Mg PO DAILY Pravastatin 40 Mg Tab 40 Mg PO DAILY Metoprolol Tartrate 50 Mg Tab 50 Mg PO BID Magnesium Oxide 400 Mg Tab 400 Mg PO BID Losartan (Losartan Potassium) 25 Mg Tab 25 Mg PO DAILY Mucus Relief ER (Guaifenesin) 600 Mg Tab 400 Mg PO BID PRN Furosemide 20 Mg Tab 20 Mg PO BID Finasteride 5 Mg Tab 5 Mg PO DAILY Do not crush. Buspirone (Buspirone HCl) 15 Mg Tab 15 Mg PO TID Symbicort Inh (Budesonide/Formoterol Fumarate) 80-4.5 Mcg/Act Aero 2 Puff INH Q12HR Alfuzosin ER 24 HR 10 Mg Tab 10 Mg PO DAILY Warfarin 2.5 Mg Tab 2.5 Mg PO Warfarin 5 Mg Tab 5 Mg PO MON,,MON Folic Acid 400 Mcg Tab 400 Mcg PO DAILY Vitamin D3 (Cholecalciferol) 1,000 Unit Tab 1,000 Units PO DAILY Narrative Medication List of his home medications reviewed from the nursing note. Review of Systems Except as stated in HPI: all other systems reviewed are Neg Respiratory: Positive: Shortness of Breath Physical Exam Narrative GENERAL: Awake, alert, anxious, moderate distress SKIN: Focused skin assessment warm/dry. HEAD: Atraumatic. Normocephalic. EYES: Pupils equal and round. No scleral icterus. No injection or drainage. ENT: No nasal bleeding or discharge. Dry mucous membrane. Poor dentition. NECK: Trachea midline. No JVD. CARDIOVASCULAR: Regular rate and rhythm. No murmur appreciated. RESPIRATORY: Diminished air entry bilaterally. GASTROINTESTINAL: Abdomen soft, non-tender, nondistended. Hepatic and splenic margins not palpable. MUSCULOSKELETAL: No obvious deformities. No clubbing. No cyanosis. No edema. NEUROLOGICAL: Awake and alert. No obvious cranial nerve deficits. Motor grossly within normal limits. Normal speech. PSYCHIATRIC: Appropriate mood and affect; insight and judgment normal. Data Data Last Documented VS Vital Signs Date Time Temp Pulse Resp B/P (MAP) Pulse Ox O2 Delivery O2 Flow Rate FiO2 10/14/17 19:59 96 Nasal Cannula 2.00 10/14/17 19:17 18 10/14/17 19:14 97.8 101 126/65 (85) Orders Orders Complete Blood Count With Diff (10/14/17:) Comprehensive Metabolic Panel (10/14/17:23) B-Type Natriuretic Peptide (10/14/17:23) Prothrombin Time / Inr (Pt) (10/14/17:) Magnesium (Mg) (10/14/17:) Troponin I (10/14/17:23) Blood Culture (10/14/17:23) Iv Access Insert/Monitor (10/14/17:23) Electrocardiogram (10/14/17:) Ecg Monitoring (10/14/17) Oximetry (2/10/18 19:23) Oxygen Administration (10/14/17 19:23) Chest, Single Ap (10/14/17 19:23) Sodium Chloride 0.9% Flush (Ns Flush) (10/14/17 19:30) Methylprednisolone So Succ Inj (Solumedr (10/14/17 19:30) Albuterol-Ipratropium Neb (Duoneb Neb) (10/14/17 19:30) Ct Pulmonary Angiogram (10/14/17 ) Ed Discharge Order (10/14/17 23:23) Iohexol 350 Inj (Omnipaque 350 Inj) (10/14/17 22:23) Labs Laboratory Tests Test 10/14/17 19:00 White Blood Count 8.2 TH/MM3 Red Blood Count 4.04 MIL/MM3 Hemoglobin 13.8 GM/DL Hematocrit 40.2 % Mean Corpuscular Volume 99.5 FL Mean Corpuscular Hemoglobin 34.1 PG Mean Corpuscular Hemoglobin Concent 34.2 % Red Cell Distribution Width 14.6 % Platelet Count 149 TH/MM3 Mean Platelet Volume 8.2 FL Neutrophils (%) (Auto) 68.0 % Lymphocytes (%) (Auto) 23.0 % Monocytes (%) (Auto) 7.2 % Eosinophils (%) (Auto) 1.1 % Basophils (%) (Auto) 0.7 % Neutrophils # (Auto) 5.6 TH/MM3 Lymphocytes # (Auto) 1.9 TH/MM3 Monocytes # (Auto) 0.6 TH/MM3 Eosinophils # (Auto) 0.1 TH/MM3 Basophils # (Auto) 0.1 TH/MM3 CBC Comment DIFF FINAL Differential Comment Prothrombin Time 16.4 SEC Prothromb Time International Ratio 1.6 RATIO Blood Urea Nitrogen 34 MG/DL Creatinine 1.29 MG/DL Random Glucose 76 MG/DL Total Protein 7.1 GM/DL Albumin 3.2 GM/DL Calcium Level 9.0 MG/DL Magnesium Level 2.2 MG/DL Alkaline Phosphatase 70 U/L Aspartate Amino Transf (AST/SGOT) 30 U/L Alanine Aminotransferase (ALT/SGPT) 46 U/L Total Bilirubin 0.8 MG/DL Sodium Level 134 MEQ/L Potassium Level 4.2 MEQ/L Chloride Level 95 MEQ/L Carbon Dioxide Level 30.4 MEQ/L Anion Gap 9 MEQ/L Estimat Glomerular Filtration Rate 54 ML/MIN Troponin I 0.03 NG/ML B-Type Natriuretic Peptide 426 PG/ML MDM Medical Decision Making Medical Screen Exam Complete: Yes Emergency Medical Condition: Yes Medical Record Reviewed: Yes Interpretation(s) Twelve-lead EKG was reviewed by me. Atrial fibrillation, normal axis, rate controlled. Heart rate of 97 bpm. Differential Diagnosis Congestive heart failure, COPD exacerbation, pneumonia Narrative Course 8:16 PM patient was given 2 DuoNeb and IV Solu-Medrol. Awaiting for chest x- ray and blood test results. Patient was admitted on September 26 for shortness of breath and was found to be in congestive heart failure. He had an echocardiogram done which showed an EF of 20% as per the topstitcher lockstitch. 11:[address] pulmonary angiogram does not show any PE as per the radiologist. Patient has a small chronic pleural effusion. There are scars from COPD. Otherwise negative. I'll discharge him home for COPD exacerbation. Procedures EKG Prior to Arrival: No Diagnosis Primary Impression: Respiratory distress Additional Impression: COPD exacerbation Referrals: Primary Care Physician Additional Instructions: Follow-up with your primary care physician. Take the medication as per the prescription direction. Use 2 puffs of your albuterol inhaler every 4-6 hours still symptoms subside. Return to ER if condition worsens or any other new concerns. Med/Other Pt SpecificInfo: Prescription(s) given Scripts Prednisone (Prednisone) 20 Mg Tab 20 MG PO BID for 5 Days, #10 TAB 0 Refills Prov: Emilia Asher MD 10/14/17 Disposition: 01 DISCHARGE HOME Condition: Stable Emilia Asher MD Oct 14, 2017 19:16
[2017-10-14] MEDS ORDERED: methylPREDNISolone SOD SUCC 125 MG/2 ML VIAL IV PUSH ONE (19:30)
[2017-10-14] MEDS ORDERED: SODIUM CHLORIDE 0.9% FLUSH 10 ML FLUSH IVF PRN (19:30)
[2017-10-14] MEDS: RESP: ALBUTEROL 2.5 MG/IPRATROPIUM 0.5 MG NEB (SCH) INH (19:30)
[2017-10-14 19:32] VITALS: O2SAT 98
[2017-10-14 19:52] LABS: AUTOMATED NEUTROPHIL # 5.6 TH/MM3 (1.8-7.7); BASOPHIL # 0.1 TH/MM3 (0-0.2); BASOPHIL % 0.7 % (0.0-2.0); EOSINOPHIL # 0.1 TH/MM3 (0-0.4); EOSINOPHIL % 1.1 % (0.0-4.0); HEMATOCRIT 40.2 % (39.0-51.0); HEMOGLOBIN 13.8 GM/DL (13.0-17.0); LYMPHOCYTE # 1.9 TH/MM3 (1.0-4.8); MEAN CELL VOLUME 99.5 FL (80.0-100.0); MEAN CORPUSCULAR HEMOGLOBIN 34.1 PG (27.0-34.0); MEAN CORPUSCULAR HGB CONC 34.2 % (32.0-36.0); MEAN PLATELET VOLUME 8.2 FL (7.0-11.0); MONO % 7.2 % (0.0-8.0); MONOCYTE # 0.6 TH/MM3 (0-0.9); PLATELET COUNT 149 TH/MM3 (150-450); RED BLOOD COUNT 4.04 MIL/MM3 (4.50-5.90); RED CELL DISTRIBUTION WIDTH 14.6 % (11.6-17.2); WHITE BLOOD COUNT 8.2 TH/MM3 (4.0-11.0)
[2017-10-14 20:04] LABS: INTERNATIONAL NORMALIZED RATIO 1.6 RATIO; PROTHROMBIN TIME - PATIENT 16.4 SEC (9.8-11.6)
[2017-10-14 20:14] LABS: ALBUMIN 3.2 GM/DL (3.4-5.0); AST (GOT) 30 U/L (15-37); BICARBONATE 30.4 MEQ/L (21.0-32.0); BLOOD UREA NITROGEN 34 MG/DL (7-18); CHLORIDE 95 MEQ/L (98-107); CREATININE 1.29 MG/DL (0.60-1.30); GLOMERULAR FILTRATION RATE 54 ML/MIN (>89); GLUCOSE,RANDOM 76 MG/DL (74-106); MAGNESIUM 2.2 MG/DL (1.5-2.5); SODIUM (NA) 134 MEQ/L (136-145)
[2017-10-14 20:15] LABS: ALT (GPT) 46 U/L (12-78)
[2017-10-14 20:19] LABS: ALKALINE PHOSPHATASE 70 U/L (45-117); TOTAL BILIRUBIN ADULT 0.8 MG/DL (0.2-1.0); TOTAL PROTEIN 7.1 GM/DL (6.4-8.2); TROPONIN I 0.03 NG/ML (0.02-0.05)
--- NOTE | 2017-10-14 20:43 | RADRPT ---
EXAM DATE/TIME: 10/14/2017 19:50 [facility] COMPARISON: CHEST SINGLE AP, October 13, 2017, 14:52. INDICATIONS : Shortness of breath and cough for one week. MEDICAL HISTORY : Hypertension. Chronic obstructive pulmonary disease. Congestive heart failure. A fib. Emphysema SURGICAL HISTORY : Cardiac stent. ENCOUNTER: Initial ACUITY: 1 week PAIN SCORE: 0/10 LOCATION: Bilateral chest FINDINGS: Opacity in the right lower chest characteristic of infiltrate and pleural effusion is similar to yest erday's exam. Small area of non-consolidative infiltrate in the upper lateral is also stable. Stabl e left bladder calcification. The heart is enlarged. No evidence of pneumothorax. CONCLUSION: Right lower lung infiltrate, right pleural effusion, bilateral pleural calcification and left upper l consuelo infiltrate, stable from yesterday's exam. No new findings. Russ Tolliver MD on October 14, 2017 at 20:38 Board Certified Radiologist. This report was verified electronically.
[2017-10-14] MEDS ORDERED: IOHEXOL 350 MG/ML 10 ML VIAL (for RAD DIAG) IVCONTRAST ONE (22:23)
--- NOTE | 2017-10-14 23:15 | RADRPT ---
EXAM DATE/TIME: 10/14/2017 22:23 [facility] COMPARISON: CT THORAX W/O CONTRAST, July 28, 2016, 17:35. INDICATIONS : Shortness of breath. IV CONTRAST: 75 cc Omnipaque 350 (iohexol) IV RADIATION DOSE: 8.81 CTDIvol (mGy) MEDICAL HISTORY : Chronic obstructive pulmonary disease. Congestive heart failure. Cardiovascular diseaseHypertension. CVA. SURGICAL HISTORY : Appendectomy. ENCOUNTER: Initial ACUITY: 1 day PAIN SCALE: 2/10 LOCATION: Bilateral chest TECHNIQUE: Volumetric scanning of the chest was performed using a pulmonary embolism protocol MIP images were re constructed. Using automated exposure control and adjustment of the mA and/or kV according to patien t size, radiation dose was kept as low as reasonably achievable to obtain optimal diagnostic quality images. DICOM format image data is available electronically for review and comparison. Follow-up recommendations for detected pulmonary nodules are based at a minimum on nodule size and pa tient risk factors according to Fleischner Society Guidelines. FINDINGS: No filling defects identified to suggest pulmonary embolus. Small right pleural effusion with right b asilar atelectasis. Bibasilar parenchymal scarring. Extensive pleural thickening and calcification bi laterally. Dense coronary calcifications. No hilar, mediastinal or axillary adenopathy. No acute findings in the upper abdomen. CONCLUSION: 1. Negative for pulmonary embolism. Chronic small right pleural effusion similar to July 2016 with extensive pleural calcifications a nd basilar scarring and atelectasis. Isiah Raymundo MD on October 14, 2017 at 23:10 Board Certified Radiologist. This report was verified electronically.
[2017-10-14] MEDS ORDERED: PRED20 PO (23:26)
--- NOTE | 2017-10-15 00:36 | EKG ---
Date Performed: 10/14/2017 Time Performed: 19:56:00 PTAGE: 76 years EKG: ATRIAL FIBRILLATION SEPTAL MYOCARDIAL INFARCTION NON-SPECIFIC ST/T WAVE CHANGES ABNORMAL EC G PREVIOUS TRACING : 10/13/2017 14.58 Since the prior tracing, there has been no significant burns DOCTOR: Bk Hughes Interpretating Date/Time 10/15/2017 00:35:39
== END 2017-10-14 23:51 | disposition home or self-care (01) ==
LOC: NEPE 19:04
DX: R06.03 Acute respiratory distress (principal); J44.1 Chronic obstructive pulmonary disease with (acute) exacerbation; I48.91 Unspecified atrial fibrillation; I11.0 Hypertensive heart disease with heart failure; I73.9 Peripheral vascular disease, unspecified; Z72.0 Tobacco use
CPT/HCPCS: 71045; 71275; 80053; 83735; 83880; 84484; 85025; 85610; 87040; 93005; 94640; 94664; 96374; 99285; J2930; Q9967

== ENCOUNTER 2017-11-06 11:02 | Inpatient (IN) | payer OTHER, MEDICARE ==
[~2017-11-06] VITALS: Ht 181.6 cm; Wt 68.0 kg
[2017-11-06] VITALS (16 sets, daily range): BP systolic 64–115; BP diastolic 41–61; PULSE 114–134; RESP 28–43; TEMP 98.1–99.8; O2SAT 82–98
[~2017-11-06 11:02] MED LIST changes: -AMOX500C PO
[2017-11-06] MEDS ORDERED: RESP: ALBUTEROL 2.5 MG/IPRATROPIUM 0.5 MG NEB (SCH) INH ONE (11:15)
[2017-11-06] MEDS ORDERED: SODIUM CHLORIDE 0.9% FLUSH 10 ML FLUSH IVF PRN (11:15)
[2017-11-06] MEDS ORDERED: SODIUM CHLORID 0.9% 500 ML INJ 500 ML IV ONE (11:15)
[2017-11-06] MEDS ORDERED: SODIUM CHLORIDE 0.9% FLUSH 10 ML FLUSH IV FLUSH PRN ×2 (11:15→14:30)
[2017-11-06] MEDS ORDERED: DILTIAZEM HCL 25 MG/5 ML VIAL IV PUSH ONE (11:15)
[2017-11-06] MEDS ORDERED: DILTIAZEM INJ 125 MG in SODIUM CHLORIDE 0.9% INJ 100 ML IV PRN (11:15)
[2017-11-06 11:48] LABS: AUTOMATED NEUTROPHIL # 31.2 TH/MM3 (1.8-7.7); BASOPHIL # 0.4 TH/MM3 (0-0.2); BASOPHIL % 1.3 % (0.0-2.0); HEMATOCRIT 40.1 % (39.0-51.0); HEMOGLOBIN 13.2 GM/DL (13.0-17.0); LYMPHOCYTE # 0.7 TH/MM3 (1.0-4.8); MEAN CELL VOLUME 98.2 FL (80.0-100.0); MEAN CORPUSCULAR HEMOGLOBIN 32.2 PG (27.0-34.0); MEAN CORPUSCULAR HGB CONC 32.8 % (32.0-36.0); MEAN PLATELET VOLUME 7.8 FL (7.0-11.0); MONO % 2.6 % (0.0-8.0); MONOCYTE # 0.9 TH/MM3 (0-0.9); NEUT % 94.1 % (16.0-70.0); PLATELET COUNT 292 TH/MM3 (150-450); RED BLOOD COUNT 4.08 MIL/MM3 (4.50-5.90); RED CELL DISTRIBUTION WIDTH 13.9 % (11.6-17.2); WHITE BLOOD COUNT 33.2 TH/MM3 (4.0-11.0)
--- NOTE | 2017-11-06 11:52 | RADRPT ---
EXAM DATE/TIME: 11/06/2017 11:39 [place] COMPARISON: CT PULMONARY ANGIOGRAM, October 14, 2017, 22:23. CHEST SINGLE AP, October 14, 2017, 19:50. INDICATIONS : Short of breath MEDICAL HISTORY : Chronic obstructive pulmonary disease. Congestive heart failure. Cardiovascular disease. Hyperten herminia, CVA SURGICAL HISTORY : Appendectomy. ENCOUNTER: Initial ACUITY: 1 day PAIN SCORE: 0/10 LOCATION: Bilateral chest FINDINGS: 2 portable frontal views of the chest showing large area of parenchymal consolidation involving the r ight upper lobe, right middle lobe, and right lower lobe. This is new from the prior study. Left lung is clear. Calcified plaques overlying the hemithoraces bilaterally. Small right effusion. No effusio n seen on the left. Heart is at the upper limits of normal in terms of size. Bony structures are unre markable. CONCLUSION: New infiltrate occupying much of the right lung. Small right effusion. Russ Duffy Jr., MD on November 06, 2017 at 11:50 Board Certified Radiologist. This report was verified electronically.
[2017-11-06 11:55] LABS: CHLORIDE 90 MEQ/L (98-107); SODIUM (NA) 128 MEQ/L (136-145)
[2017-11-06 11:59] LABS: BICARBONATE 29.5 MEQ/L (21.0-32.0); BLOOD UREA NITROGEN 53 MG/DL (7-18); GLUCOSE,RANDOM 163 MG/DL (74-106); MAGNESIUM 1.9 MG/DL (1.5-2.5)
[2017-11-06 12:01] LABS: INTERNATIONAL NORMALIZED RATIO 3.1 RATIO; PROTHROMBIN TIME - PATIENT 31.6 SEC (9.8-11.6)
[2017-11-06 12:02] LABS: ALT (GPT) 61 U/L (12-78); AST (GOT) 41 U/L (15-37); GLOMERULAR FILTRATION RATE 33 ML/MIN (>89)
[2017-11-06 12:04] LABS: TOTAL BILIRUBIN ADULT 1.2 MG/DL (0.2-1.0); TOTAL PROTEIN 6.2 GM/DL (6.4-8.2)
[2017-11-06 12:05] LABS: ALKALINE PHOSPHATASE 88 U/L (45-117)
[2017-11-06 12:07] LABS: TROPONIN I 0.11 NG/ML (0.02-0.05)
[2017-11-06] MEDS ORDERED: VANCOMYCIN INJ 1 MG in SODIUM CHLOR 0.9% 250 ML INJ 250 ML IV STA (12:15)
[2017-11-06] MEDS ORDERED: PIPERACIL-TAZO 4.5 GM PREMIX 100 ML IV STA (12:15)
[2017-11-06 12:21] LABS: URINE COLOR PINK (YELLW/STRAW)
--- NOTE | 2017-11-06 12:23 | PD ---
HPI Chief Complaint: General Weakness Time Seen by Provider: 11:12 Travel History International Travel<30 days: No Contact w/Intl Traveler<30days: No Traveled to known affect area: No History of Present Illness HPI 76-year-old male was reportedly sent for possible Serrano catheter insertion. This gentleman has a history of asbestosis and congestive heart failure. He has a history of chronic atrial fibrillation. He has recently joined [employer]. His daughter says that last week he accidentally got double doses of warfarin. He has been short of breath and weak. He has been coughing up some blood. He has been unable to urinate. He has a history of COPD and asbestosis. He has chronic atrial fibrillation and congestive heart failure. He has a DO NOT RESUSCITATE order. PFSH Past Medical History Hx Anticoagulant Therapy: Yes Arthritis: No Asthma: No Atrial Fibrillation: Yes Autoimmune Disease: No Anxiety: Yes Depression: No Heart Rhythm Problems: Yes (afib) Cancer: No Cardiovascular Problems: Yes ("BLOCKAGE IN LEFT SHOULDER/NECK") High Cholesterol: Yes Chest Pain: No Congestive Heart Failure: Yes COPD: Yes Cerebrovascular Accident: Yes Diabetes: No Diminished Hearing: Yes Endocrine: No Gastrointestinal Disorders: Yes GERD: No Genitourinary: No Headaches: No Hepatitis: No Hiatal Hernia: No Heparin Induced Thrombocytopen: No Hypertension: Yes Immune Disorder: No Implanted Vascular Access Dvce: No Kidney Stones: No Musculoskeletal: No Neurologic: No Psychiatric: No Reproductive: No Respiratory: Yes (asbestos) Immunizations Current: Yes Migraines: No Myocardial Infarction: No Radiation Therapy: No Renal Failure: No Seizures: No Sickle Cell Disease: No Sleep Apnea: No Thyroid Disease: No Ulcer: No Tetanus Vaccination: < 5 Years Influenza Vaccination: No Past Surgical History Abdominal Surgery: Yes AICD: No Appendectomy: Yes Body Medical Devices: PT. POOR HISTORIAN, DOES NOT REMEMBER WANT MEDS HE IS TAKING. Cardiac Surgery: No Cholecystectomy: No Ear Surgery: No Endocrine Surgery: No Eye Surgery: No Genitourinary Surgery: No Insulin Pump: No Joint Replacement: No Neurologic Surgery: No Oral Surgery: No Pacemaker: No Thoracic Surgery: No Tonsillectomy: Yes Other Surgery: Yes Social History Alcohol Use: Yes (3-4DRINKS PER DAY) Tobacco Use: No Substance Use: No Allergies-Medications (Allergen,Severity, Reaction): Coded Allergies: gabapentin (Verified Allergy, Unknown, UNKNOWN, 3/5/18) lisinopril (Verified Adverse Reaction, Intermediate, GI UPSET, 11/06/17) Reported Meds & Prescriptions Reported Meds & Active Scripts Active Prednisone 20 Mg Tab 20 Mg PO BID 5 Days Flexeril (Cyclobenzaprine HCl) 10 Mg Tab 10 Mg PO TID [Albuterol-Ipratropium Neb] 1 AMPULE Nebu 1 Ampule INH Q4HR NEB Proair Hfa 8.5 GM Inh (Albuterol Sulfate) 90 Mcg/Act Aer 1 Puff INH Q2HR PRN 108 mcg/actuation Reported Nitroglycerin SL (Nitroglycerin) 0.3 Mg Subl 0.3 Mg SL DIRECTED PRN ONE TABLET UNDER THE TONGUE NEEDED FOR CHEST PAIN, MAY REPEAT EVERY FIVE MINUTES FOR A TOTAL OF 3 DOSES OR CALL 911 IF NO RELIEF Trazodone (Trazodone HCl) 50 Mg Tab 50 Mg PO HS Kls Aller-Bebo (Fluticasone Propionate (Nasal)) 50 Mcg/Actuation Spr Spiriva Handihaler (Tiotropium Inh) 18 Mcg Cap 18 Mcg INH DAILY 1 capsule = 18 mcg Spironolactone 25 Mg Tab 50 Mg PO DAILY Pravastatin 40 Mg Tab 40 Mg PO DAILY Metoprolol Tartrate 50 Mg Tab 50 Mg PO BID Magnesium Oxide 400 Mg Tab 400 Mg PO BID Losartan (Losartan Potassium) 25 Mg Tab 25 Mg PO DAILY Mucus Relief ER (Guaifenesin) 600 Mg Tab 400 Mg PO BID PRN Furosemide 20 Mg Tab 20 Mg PO BID Finasteride 5 Mg Tab 5 Mg PO DAILY Do not crush. Buspirone (Buspirone HCl) 15 Mg Tab 15 Mg PO TID Symbicort Inh (Budesonide/Formoterol Fumarate) 80-4.5 Mcg/Act Aero 2 Puff INH Q12HR Alfuzosin ER 24 HR 10 Mg Tab 10 Mg PO DAILY Warfarin 2.5 Mg Tab 2.5 Mg PO Warfarin 5 Mg Tab 5 Mg PO MON,,MON Folic Acid 400 Mcg Tab 400 Mcg PO DAILY Vitamin D3 (Cholecalciferol) 1,000 Unit Tab 1,000 Units PO DAILY Review of Systems General / Constitutional: No: Fever, Chills Eyes: No: Diploplia, Blurred Vision HENT: No: Headaches, Vertigo Cardiovascular: No: Chest Pain or Discomfort Respiratory: Positive: Cough, Shortness of Breath Gastrointestinal: Positive: Nausea Genitourinary: Positive: Decreased Urinary Output Skin: No Rash, No Itching Neurologic: Positive: Weakness, No: Syncope Hematologic/Lymphatic: Positive: Easy Bruising Physical Exam Narrative GENERAL: Chronically ill-appearing male. He is coughing up blood SKIN: Focused skin assessment warm/dry. HEAD: Atraumatic. Normocephalic. EYES: Pupils equal and round. No scleral icterus. No injection or drainage. ENT: No nasal bleeding or discharge. Mucous membranes pink and moist. NECK: Trachea midline. No JVD. CARDIOVASCULAR: Rapid irregular rate and rhythm. No murmur appreciated. RESPIRATORY: There is accessory muscle use. There is diminished breath sounds on the right GASTROINTESTINAL: Abdomen soft, non-tender, nondistended. Hepatic and splenic margins not palpable. MUSCULOSKELETAL: No obvious deformities. No clubbing. No cyanosis. No edema. NEUROLOGICAL: Awake and alert. No obvious cranial nerve deficits. Motor grossly within normal limits. Normal speech. PSYCHIATRIC: Appropriate mood and affect; insight and judgment normal. Data Data Last Documented VS Vital Signs Date Time Temp Pulse Resp B/P (MAP) Pulse Ox O2 Delivery O2 Flow Rate FiO2 11/06/17 12:27 120 29 97/50 (66) 96 Non-Rebreather 15.00 11/06/17 11:12 99.8 Orders Orders Complete Blood Count With Diff (11/06/17 11:13) Comprehensive Metabolic Panel (11/06/17 11:13) B-Type Natriuretic Peptide (11/06/17 11:13) Act Partial Throm Time (Ptt) (11/06/17 11:13) Prothrombin Time / Inr (Pt) (11/06/17 11:13) Magnesium (Mg) (11/06/17 11:13) Troponin I (11/06/17 11:13) Urinalysis - C+S If Indicated (11/06/17 11:13) Blood Culture (11/06/17 11:13) Iv Access Insert/Monitor (11/06/17 11:13) Ecg Monitoring (11/06/17 11:13) Oximetry (11/06/17 11:13) Oxygen Administration (11/06/17 11:13) Chest, Single Ap (11/06/17 11:13) Sodium Chloride 0.9% Flush (Ns Flush) (11/06/17 11:15) Albuterol-Ipratropium Neb (Duoneb Neb) (11/06/17 11:15) Blood Pressure (11/06/17 11:13) Vital Signs (11/06/17 11:13) Diltiazem Inj (Cardizem Inj) (11/06/17 11:15) Diltiazem Inj (Cardizem Inj) (11/06/17 11:15) Sodium Chloride 0.9% Flush (Ns Flush) (11/06/17 11:15) Sodium Chlorid 0.9% 500 Ml Inj (Ns 500 M (11/06/17 11:15) Urinary Catheter Insert/Apply (11/06/17 11:19) Vancomycin Inj (Vancomycin Inj) (11/06/17 12:15) Piperacil-Tazo 4.5 Gm Premix (Zosyn 4.5 (11/06/17 12:15) Urine Culture (11/06/17 11:40) Vancomycin Inj (Vancomycin Inj) (11/06/17 12:45) Labs Laboratory Tests Test 11/06/17 11:05 11/06/17 11:40 White Blood Count 33.2 TH/MM3 Red Blood Count 4.08 MIL/MM3 Hemoglobin 13.2 GM/DL Hematocrit 40.1 % Mean Corpuscular Volume 98.2 FL Mean Corpuscular Hemoglobin 32.2 PG Mean Corpuscular Hemoglobin Concent 32.8 % Red Cell Distribution Width 13.9 % Platelet Count 292 TH/MM3 Mean Platelet Volume 7.8 FL Neutrophils (%) (Auto) 94.1 % Lymphocytes (%) (Auto) 2.0 % Monocytes (%) (Auto) 2.6 % Eosinophils (%) (Auto) 0.0 % Basophils (%) (Auto) 1.3 % Neutrophils # (Auto) 31.2 TH/MM3 Lymphocytes # (Auto) 0.7 TH/MM3 Monocytes # (Auto) 0.9 TH/MM3 Eosinophils # (Auto) 0.0 TH/MM3 Basophils # (Auto) 0.4 TH/MM3 CBC Comment AUTO DIFF Prothrombin Time 31.6 SEC Prothromb Time International Ratio 3.1 RATIO Activated Partial Thromboplast Time 45.7 SEC Blood Urea Nitrogen 53 MG/DL Creatinine 2.00 MG/DL Random Glucose 163 MG/DL Total Protein 6.2 GM/DL Albumin 2.0 GM/DL Calcium Level 9.0 MG/DL Magnesium Level 1.9 MG/DL Alkaline Phosphatase 88 U/L Aspartate Amino Transf (AST/SGOT) 41 U/L Alanine Aminotransferase (ALT/SGPT) 61 U/L Total Bilirubin 1.2 MG/DL Sodium Level 128 MEQ/L Potassium Level 4.9 MEQ/L Chloride Level 90 MEQ/L Carbon Dioxide Level 29.5 MEQ/L Anion Gap 9 MEQ/L Estimat Glomerular Filtration Rate 33 ML/MIN Troponin I 0.11 NG/ML B-Type Natriuretic Peptide 1537 PG/ML Urine Collection Type VOIDED Urine Color PINK Urine Turbidity TURBID Urine pH 6.0 Urine Specific [place] 1.015 Urine Protein 300 OR GREATER mg/dL Urine Glucose (UA) NEG mg/dL Urine Ketones 15 mg/dL Urine Occult Blood LARGE Urine Nitrite POS Urine Bilirubin NEG Urine Leukocyte Esterase LARGE Urine RBC INNUM /hpf Urine WBC INNUM /hpf Urine WBC Clumps MANY Urine Bacteria MANY /hpf Microscopic Urinalysis Comment CULTURE INDICATED MDM Medical Decision Making Medical Screen Exam Complete: Yes Emergency Medical Condition: Yes Medical Record Reviewed: Yes Differential Diagnosis Differential includes rapid atrial fibrillation, CHF, pneumonia, dehydration Narrative Course X-ray shows a large right-sided infiltrate. White count is 33,000. A Serrano catheter was inserted and he does have a urinary tract infection. He is dehydrated with a BUN of 53 creatinine of 2. His BNP is elevated at 1537 and troponin of 0.11. We did have to give him some saline for hypotension. He is here with his daughter are in agreement that they wish to discontinue the care with [facility] hospice and be admitted to the hospital. He does reaffirm his DNR order Diagnosis Primary Impression: COPD exacerbation Additional Impressions: Rapid atrial fibrillation Pneumonia Dehydration Admitting Information Admitting Physician Requests: Admit Naresh Parks MD Nov 06, 2017 12:23
[2017-11-06 12:26] LABS: GLUCOSE,URINE NEG (NEG)
[2017-11-06 12:27] LABS: BILIRUBIN, URINE NEG (NEG); KETONE, URINE 15 mg/dL (NEG); NITRITE,URINE POS (NEG)
[2017-11-06 12:28] LABS: BLOOD, URINE LARGE (NEG); URINE LEUKOCYTE ESTERASE LARGE (NEG)
[2017-11-06 12:35] LABS: WBC, URINE INNUM /hpf (0-5)
[2017-11-06 12:36] LABS: BACTERIA, URINE MANY /hpf; RBC, URINE INNUM /hpf (0-3); WHITE BLOOD CELL CLUMPS MANY
[2017-11-06 12:45] LABS: BANDS 11 % (0-6); LYMPHOCYTES 1 % (9-44); METAMYELOCYTES 3 % (0-1); MONOCYTES 8 % (0-8); MYELOCYTES 2 % (0-0); NEUTROPHIL # MANUAL DIFF 30.2 TH/MM3 (1.8-7.7); POLYS (SEG NEUTROPHILS) 75 % (16-70)
[2017-11-06] MEDS ORDERED: DEXA4TAB PO (12:45)
[2017-11-06] MEDS ORDERED: DIPH25CA PO (12:45)
[2017-11-06] MEDS ORDERED: VANCOMYCIN INJ 1,000 MG in SODIUM CHLOR 0.9% 250 ML INJ 250 ML IV ONE (12:45)
[2017-11-06] MEDS ORDERED: ALBU6.7H INH (12:45)
[2017-11-06 12:46] LABS: DOHLE BODIES PRESENT (NONE SEEN)
[2017-11-06 12:47] LABS: HYPERSEGMENTED POLYS 1+ (NORMAL); TOXIC GRANULATION 2+ (NORMAL)
[2017-11-06] MEDS ORDERED: ONDANSETRON HCL 4 MG/2 ML VIAL IV PUSH ONE (13:00)
[2017-11-06] MEDS ORDERED: LORazepam 2 MG/ML VIAL IV PUSH ONE (13:00)
[2017-11-06] MEDS ORDERED: SODIUM CHLOR 0.9% 1000 ML INJ 1,000 ML IV ONE (14:00)
[2017-11-06] MEDS ORDERED: ACETAMINOPHEN 325 MG TAB PO PRN (14:30)
[2017-11-06] MEDS ORDERED: RESP: ALBUTEROL 2.5 MG/IPRATROPIUM 0.5 MG NEB (PRN) INH (14:30)
[2017-11-06] MEDS ORDERED: SENNOSIDES 8.6 MG TAB PO PRN (14:30)
[2017-11-06] MEDS ORDERED: LACTULOSE SYRUP 20 GM/30 ML CUP PO PRN (14:30)
[2017-11-06] MEDS ORDERED: CHLORHEXIDINE GLUCONATE 2 % 1 PACK (2 CLOTHS) TOP PRN (14:30)
[2017-11-06] MEDS ORDERED: BISACODYL 10 MG SUPP RECTAL PRN ×2 (14:30→18:00)
[2017-11-06] MEDS ORDERED: ONDANSETRON HCL 4 MG/2 ML VIAL IV PUSH PRN (14:30)
[2017-11-06] MEDS ORDERED: MISCELLANEOUS NURSING INFORMATION XX SCH (14:30)
[2017-11-06] MEDS ORDERED: ACETAMINOPHEN/HYDROcodone 325 MG/5 MG TAB PO PRN (14:30)
[2017-11-06] MEDS ORDERED: MAGNESIUM HYDROXIDE SUSP 30 ML CUP PO PRN (14:30)
[2017-11-06] MEDS ORDERED: MORPHINE SULFATE 2 MG/ML INJ IV PUSH PRN (14:45)
[2017-11-06] MEDS ORDERED: HYOSCYAMINE SOLN 0.125 MG/ML 15 ML BTL PO PRN (15:30)
[2017-11-06] MEDS ORDERED: RESP: ALBUTEROL 2.5 MG/IPRATROPIUM 0.5 MG NEB (SCH) INH (16:00)
--- NOTE | 2017-11-06 16:40 | HHI.HP ---
HPI Service [facility] Primary Care Physician [facility] Admission Diagnosis PNEUMONIA, RAPID ATRIAL FIBRILLATION, DEHYDRATION Diagnoses: (1) Acute respiratory failure with hypoxia Travel History International Travel<30 Days: No Contact w/Intl Traveler <30 Da: No Traveled to Known Affected Are: No Sepsis Criteria SIRS Criteria (2 or more): Heart rate over 90, RR > 20 or PaCO2 < 32, WBC > 97683, < 4000 or > 10% bands Sepsis Criteria (SIRS+source): Infect source susp/known Severe Sepsis (+one): Organ Dysfunction, Hypotension Septic Shock Criteria: Unresponsive to 30ml/kg fluid bolus Multiple Organ Dysfunction Syn: Evidence -2 organs failing Criteria Outcome: Meets multiple organ dys. 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 Apparently the family is not too content with the hospice company because of the patient having taken down all the medication and they were not readily available for questions and answers in the patient's management and care. ER documentation indicates that the patient was brought to the hospital for possible catheter insertion. There is indications that he has been coughing up blood, unable to urinate. He does have a DO NOT RESUSCITATE order. Patient had workup done emergency department and found to have multisystem organ failure with hypoxic respiratory failure requiring nonrebreather at 100% to maintain oxygen saturation. Patient had hypotension with blood pressure 64/41, patient was given 500 cc of normal saline with appropriate response to blood pressure 77/58. Patient had Serrano catheter placement with minimal urinary output. Laboratory studies do show acute renal failure as well as acute liver injury. Patient had chest x-ray done which does show new infiltrate occupying much of the right lung. Urinalysis shows significant urinary tract infection. Patient with multisystem organ failure and severe septic shock. It was indicated by the family that patient still is a DNR at this time. However they do not want to go back to the hospice company that they are associated with it this time. ER physician recommended admission to the hospital and because of that they had a recent they're hospice order. Upon talking to the family. I notified them of the severity of the patient's condition. With multisystem organ failure. Without full aggressive measures he will unlikely survive. They do understand and request hospice consult with a different company. When the healthcare surrogate, the patient's son showed up he wanted comfort measures only. We'll respect the family's wishes and arrange for hospice consult with comfort measures only. 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% Hypertension Dyslipidemia Chronic obstructive pulmonary disease Chronic smoker Daily alcohol use History CVA History cerebral aneurysm Peripheral vascular disease Anxiety Carotid stenosis Past Surgical History Left fractured hip repair Appendectomy Exploratory abdominal surgery with adhesions History of PEG tube placement and removal Allergies: Coded Allergies: gabapentin (Verified Allergy, Unknown, UNKNOWN, 11/06/17) lisinopril (Verified Adverse Reaction, Intermediate, GI UPSET, 11/06/17) Family History Reviewed and significant for father having heart attack at age 51, mother had stroke at age 53 Social History Patient did smoke up to a pack a cigarettes a day since he was a teenager. Patient has history of increased alcohol intake to approximately 6 drinks daily to consist of beer and vodka, patient denies any illicit drugs Physical Exam Vital Signs Vital Signs Date Time Temp Pulse Resp B/P (MAP) Pulse Ox O2 Delivery O2 Flow Rate FiO2 11/06/17 15:02 120 41 84/51 (62) 82 11/06/17 15:00 122 11/06/17 14:35 95 90 11/06/17 14:32 124 39 80/48 (59) 91 11/06/17 14:28 126 43 77/58 (64) 97 11/06/17 14:02 98.1 134 38 64/41 (49) 11/06/17 13:29 142 113/61 11/06/17 13:20 144 30 113/61 (78) 95 Non-Rebreather 15.00 11/06/17 12:45 98.3 133 28 115/59 (77) 95 Non-Rebreather 15.00 11/06/17 12:43 133 115/59 11/06/17 12:27 120 29 97/50 (66) 96 Non-Rebreather 15.00 11/06/17 11:52 95 Non-Rebreather 11/06/17 11:52 95 Non-Rebreather 15.00 11/06/17 11:51 133 28 107/58 (74) 98 Non-Rebreather 15.00 11/06/17 11:48 128 107/58 11/06/17 11:28 95 Non-Rebreather 15.00 11/06/17 11:12 99.8 128 30 93/50 (64) 94 11/06/17 11:02 125 30 95 15.00 Physical Exam GENERAL: Well-developed, cachectic, in no acute distress. He is awake, however does not answer questions appropriately. Appears to have altered mentation HEENT: Head is normocephalic without any lesions or masses noted. Facial features are symmetric. Eyes: Pupils equal round reactive to light. Extraocular muscles are intact. Conjunctivae were clear. NECK: Supple without any masses. Trachea midline no deviation. No JVD, no bruits are appreciated CARDIAC: Regular rhythm, regular rate. S1/S2 are heard. No murmurs gallops or rubs. LUNGS: Absent lung sounds in right middle and lower lung jones. No wheeze, rhonchi or rales. No use of accessory muscles on inspiration or expiration. ABDOMEN: Soft, nontender. Nondistended. Bowel sounds heard in all 4 quadrants. No organomegaly or masses. Negative rebound, negative guarding EXTREMITIES: No edema, pulses are equal bilaterally. No cyanosis or clubbing NEUROLOGY: Cranial nerves II through XII grossly intact. Muscle strength 5/5 in upper and lower extremities bilaterally. Deep tendon reflexes are 2+ in upper and lower extremities bilaterally. Laboratory Laboratory Tests Test 11/06/17 11:05 11/06/17 11:40 White Blood Count 33.2 Red Blood Count 4.08 Hemoglobin 13.2 Hematocrit 40.1 Mean Corpuscular Volume 98.2 Mean Corpuscular Hemoglobin 32.2 Mean Corpuscular Hemoglobin Concent 32.8 Red Cell Distribution Width 13.9 Platelet Count 292 Mean Platelet Volume 7.8 Neutrophils (%) (Auto) 94.1 Lymphocytes (%) (Auto) 2.0 Monocytes (%) (Auto) 2.6 Eosinophils (%) (Auto) 0.0 Basophils (%) (Auto) 1.3 Neutrophils # (Auto) 31.2 Lymphocytes # (Auto) 0.7 Monocytes # (Auto) 0.9 Eosinophils # (Auto) 0.0 Basophils # (Auto) 0.4 CBC Comment AUTO DIFF Differential Total Cells Counted 100 Neutrophils % (Manual) 75 Band Neutrophils % 11 Lymphocytes % 1 Monocytes % 8 Neutrophils # (Manual) 30.2 Metamyelocytes 3 Myelocytes 2 Differential Comment FINAL DIFF MANUAL Hypersegmented Polys 1+ Toxic Granulation 2+ Dohle Bodies PRESENT Platelet Estimate NORMAL Platelet Morphology Comment NORMAL Prothrombin Time 31.6 Prothromb Time International Ratio 3.1 Activated Partial Thromboplast Time 45.7 Blood Urea Nitrogen 53 Creatinine 2.00 Random Glucose 163 Total Protein 6.2 Albumin 2.0 Calcium Level 9.0 Magnesium Level 1.9 Alkaline Phosphatase 88 Aspartate Amino Transf (AST/SGOT) 41 Alanine Aminotransferase (ALT/SGPT) 61 Total Bilirubin 1.2 Sodium Level 128 Potassium Level 4.9 Chloride Level 90 Carbon Dioxide Level 29.5 Anion Gap 9 Estimat Glomerular Filtration Rate 33 Troponin I 0.11 B-Type Natriuretic Peptide 1537 Urine Collection Type VOIDED Urine Color PINK Urine Turbidity TURBID Urine pH 6.0 Urine Specific [place] 1.015 Urine Protein 300 OR GREATER Urine Glucose (UA) NEG Urine Ketones 15 Urine Occult Blood LARGE Urine Nitrite POS Urine Bilirubin NEG Urine Leukocyte Esterase LARGE Urine RBC INNUM Urine WBC INNUM Urine WBC Clumps MANY Urine Bacteria MANY Microscopic Urinalysis Comment CULTURE INDICATED Date/Time Source Procedure Growth Status 11/06/17 11:05 Blood Peripheral Aerobic Blood Culture Pending Received 11/06/17 11:05 Blood Peripheral Anaerobic Blood Culture Pending Received 11/06/17 11:40 Urine Random Urine Urine Culture Pending Received Result Diagram: 11/06/17 1105 11/06/17 1105 Imaging Last Impressions Chest X-Ray 11/06/17 1113 Signed Impressions: Service Date/Time: Monday, November 06, 2017 11:39 - CONCLUSION: New infiltrate occupying much of the right lung. Small right effusion. Russ Duffy Jr., MD Septic Shock Reassessment Septic shock perfusion: reassessment completed Caprini VTE Risk Assessment Caprini VTE Risk Assessment: Mod/High Risk (score >= 2) Caprini Risk Assessment Model Point Value = 1 Point Value = 2 Point Value = 3 Point Value = 5 Age 41-60 Minor surgery BMI > 25 kg/m2 Swollen legs Varicose veins or History of unexplained or recurrent spontaneous Oral contraceptives or hormone replacement Sepsis (< 1 month) Serious lung disease, including pneumonia (< 1 month) Abnormal pulmonary function Acute myocardial infarction Congestive heart failure (< 1 month) History of inflammatory bowel disease Medical patient at bed rest Age 61-74 Arthroscopic surgery Major open surgery (> 45 min) Laparoscopic surgery (> 45 min) Malignancy Confined to bed (> 72 hours) Immobilizing plaster cast Central venous access Age >= 75 History of VTE Family history of VTE Factor V Leiden Prothrombin [id number] Lupus anticoagulant Anticardiolipin antibodies Elevated serum homocysteine Heparin-induced thrombocytopenia Other congenital or acquired thrombophilia Stroke (< 1 month) Elective arthroplasty Hip, pelvis, or leg fracture Acute spinal cord injury (< 1 month) Prophylaxis Regimen Total Risk Factor Score Risk Level Prophylaxis Regimen 0-1 Low Early ambulation 2 Moderate Order ONE of the following: *Sequential Compression Device (SCD) *Heparin 5000 units SQ BID 3-4 Higher Order ONE of the following medications: *Heparin 5000 units SQ TID *Enoxaparin/Lovenox 40 mg SQ daily (WT < 150 kg, CrCl > 30 mL/min) *Enoxaparin/Lovenox 30 mg SQ daily (WT < 150 kg, CrCl > 10-29 mL/min) *Enoxaparin/Lovenox 30 mg SQ BID (WT < 150 kg, CrCl > 30 mL/min) AND/OR *Sequential Compression Device (SCD) 5 or more Highest Order ONE of the following medications: *Heparin 5000 units SQ TID (Preferred with Epidurals) *Enoxaparin/Lovenox 40 mg SQ daily (WT < 150 kg, CrCl > 30 mL/min) *Enoxaparin/Lovenox 30 mg SQ daily (WT < 150 kg, CrCl > 10-29 mL/min) *Enoxaparin/Lovenox 30 mg SQ BID (WT < 150 kg, CrCl > 30 mL/min) AND *Sequential Compression Device (SCD) Assessment and Plan Assessment and Plan Multisystem organ failure Acute hypoxic respiratory failure Cardiac failure with hypotension in a patient with 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 Patient would not likely survive secondary to his guarded prognosis and clinical condition After discussing with the family extensively, daughter, son, who is healthcare surrogate power of deputy commonwealth's attorney they wish comfort measures only with hospice consult Consulted hospice stat for evaluation Discontinue telemetry, laboratory studies, radiological studies, medications Start Ativan 1 mg every one hour for anxiety/agitation Start morphine 2 mg every 2 hours as needed for pain and comfort Start Levsin 0.125 mg every 4 hours as needed for secretions Hospice evaluation was completed. Family wishes to accept hospice and stay at [facility] under hospice care Hospice to assume medical management and care of patient Physician Certification 2 Midnight Certification Type: Admission for Inpatient Services Order for Inpatient Services The services are ordered in accordance with Medicare regulations or non- Medicare payer requirements, as applicable. In the case of services not specified as inpatient-only, they are appropriately provided as inpatient services in accordance with the 2-midnight benchmark. Estimated LOS (days): 3 days is the estimated time the patient will need to remain in the hospital, assuming treatment plan goals are met and no additional complications. Post-Hospital Plan: Hospice Juan Villalta Nov 06, 2017 16:40
[2017-11-06] MEDS ORDERED: FAMOTIDINE 20 MG/2 ML VIAL IV PUSH SCH (21:00)
[2017-11-06] MEDS ORDERED: DOCUSATE SODIUM 50 MG/SENNA 8.6 MG TAB PO SCH (21:00)
[2017-11-06] MEDS: LORazepam 2 MG/ML VIAL IV PUSH PRN (21:39)
[2017-11-06] MEDS: MORPHINE SULFATE 2 MG/ML INJ IV PUSH PRN (21:40)
[2017-11-07] VITALS (9 sets, daily range): BP systolic 79–93; BP diastolic 45–55; PULSE 141–145; RESP 26–40; TEMP 98.1; O2SAT 90–91
[2017-11-07] MEDS: MORPHINE SULFATE 2 MG/ML INJ IV PUSH PRN ×6 (03:12→18:07)
[2017-11-07] MEDS: SODIUM CHLORIDE 0.9% FLUSH 10 ML FLUSH IV FLUSH SCH ×3 (03:13→21:41)
[2017-11-07] MEDS ORDERED: CHLORHEXIDINE GLUCONATE 2 % 1 PACK (2 CLOTHS) TOP SCH (04:00)
[2017-11-07] MEDS: LORazepam 2 MG/ML VIAL IV PUSH PRN ×7 (06:33→23:55)
[2017-11-07] MEDS: MORPHINE SULFATE 4 MG/ML INJ IV PRN ×4 (20:19→23:56)
[2017-11-08] VITALS: BP 95/54; PULSE 146; RESP 26; TEMP 98.1; O2SAT 89
[2017-11-08] MEDS: LORazepam 2 MG/ML VIAL IV PUSH PRN ×2 (01:04→02:22)
[2017-11-08] MEDS: MORPHINE SULFATE 4 MG/ML INJ IV PRN ×2 (01:04→02:22)
[2017-11-08 02:00] VITALS: BP 85/58; PULSE 160; RESP 25; O2SAT 91
[2017-11-08] MEDS ORDERED: MORPHINE SULFATE 8 MG/ML INJ IV PUSH PRN (03:45)
[2017-11-08] MEDS ORDERED: LORazepam 2 MG/ML VIAL IV PRN (03:45)
[2017-11-08] MEDS: MORPHINE SULFATE 2 MG/ML INJ IV SCH ×2 (03:52→06:19)
[2017-11-08] MEDS: LORazepam 2 MG/ML VIAL IV SCH ×2 (03:52→06:19)
[2017-11-08 04:00] VITALS: BP 86/50; PULSE 162; RESP 42; TEMP 97.9; O2SAT 90
--- NOTE | 2017-11-08 06:50 | EKG ---
Date Performed: 11/06/2017 Time Performed: 11:06:21 PTAGE: 76 years EKG: SUSPECT ATRIAL FLUTTER WITH 2:[address]-T ABNORMALITIES, CANNOT EXCLUDE ISCHE TRIP VENTRICULAR RATE IS MUCH FASTER THAN PRIOR TRACING. ABNORMAL ECG PREVIOUS TRACING : 10/14/2017 19.56 DOCTOR: Toni Marsh Interpretating Date/Time 11/08/2017 06:49:49
[2017-11-08 07:00] VITALS: BP 33/21; PULSE 155; RESP 2
== END 2017-11-08 11:44 | disposition expired | DRG 871 ==
LOC: PHED 11:02 → PHEDA 12:48 → PHICU 13:43
PROVIDERS: ADMIT Family Medicine; ATTEND Family Medicine
PROC: 0T9B70Z Drainage of Bladder with Drainage Device, Via Natural or Artificial Opening (ICD-10-PCS; principal; 2017-11-06)
PROC: 5A09357 Assistance with Respiratory Ventilation, Less than 24 Consecutive Hours, Continuous Positive Airway Pressure (ICD-10-PCS; 2017-11-06)
DX: A41.9 Sepsis, unspecified organism (principal); J96.01 Acute respiratory failure with hypoxia; R65.21 Severe sepsis with septic shock; I11.0 Hypertensive heart disease with heart failure; J18.9 Pneumonia, unspecified organism; N17.9 Acute kidney failure, unspecified; S36.119A Unspecified injury of liver, initial encounter; I50.9 Heart failure, unspecified; I42.9 Cardiomyopathy, unspecified; J44.1 Chronic obstructive pulmonary disease with (acute) exacerbation; N39.0 Urinary tract infection, site not specified; R04.2 Hemoptysis; J44.0 Chronic obstructive pulmonary disease with (acute) lower respiratory infection; I48.2 Chronic atrial fibrillation; E86.0 Dehydration; E78.00 Pure hypercholesterolemia, unspecified; J61 Pneumoconiosis due to asbestos and other mineral fibers; E78.5 Hyperlipidemia, unspecified; I73.9 Peripheral vascular disease, unspecified; R91.8 Other nonspecific abnormal finding of lung field; R74.8 Abnormal levels of other serum enzymes; D72.825 Bandemia; F41.9 Anxiety disorder, unspecified; Z51.5 Encounter for palliative care; H91.90 Unspecified hearing loss, unspecified ear; Z66 Do not resuscitate; Z86.73 Personal history of transient ischemic attack (TIA), and cerebral infarction without residual deficits; Z87.891 Personal history of nicotine dependence
CPT/HCPCS: 51702; 71045; 80053; 81001; 83735; 83880; 84484; 85007; 85027; 85610; 85730; 86403; 87040; 87086; 87147; 87186; 87205; 93005; 94002; 94664; 96365; 96375; J2060; J2270; J2405; J3370; J7030; J7040; J7050